=== PATIENT | female | born 1970 | race Caucasian/White ===

== ENCOUNTER 2018-06-19 00:44 | Emergency (ER) | payer MEDICAID ==
[2018-06-19 01:19] VITALS: BP 106/58
[2018-06-19] MEDS ORDERED: Ketorolac 30 MG/ML SDV IVPUSH ONE (01:43)
[2018-06-19] MEDS ORDERED: LORazepam 2 MG/ML SDV IVPUSH ONE (01:43)
[2018-06-19] MEDS ORDERED: Sodium Chloride 0.9% 10 ML Syringe FLUSH PRN (01:43)
--- NOTE | 2018-06-19 01:44 | EDM.PDOC ---
ED HPI GENERAL MEDICAL PROBLEM - General Chief Complaint: Respiratory Problem Stated Complaint: SOB Time Seen by Provider: 06/19/18 01:30 Source of Information: Reports: Patient History Limitations: Reports: No Limitations - History of Present Illness INITIAL COMMENTS - FREE TEXT/NARRATIVE: 48-year-old female arrives with left flank and left shoulder pain, pleuritic pain with breathing, anxiety and hyperventilation. She's been having spasm-like pain in the left shoulder all day. No cough. She is very hyperdramatic and anxious. Onset: Unknown/Unsure Associated Symptoms: Reports: Chest Pain, Shortness of Breath. Denies: Cough, Diaphoresis, Malaise, Nausea/Vomiting, Weakness Left Upper Back Pain Score (Numeric/FACES): 10 - Related Data Allergies Allergy/AdvReac Type Severity Reaction Status Date / Time adhesive tape Allergy Cannot Verified 06/19/18 01:20 Remember clindamycin Allergy Cannot Verified 06/19/18 01:20 Remember aspirin AdvReac Unknown Stomach Verified 06/19/18 01:20 Upset doxycycline AdvReac Unknown Stomach Verified 06/19/18 01:20 Upset guaifenesin AdvReac Unknown Stomach Verified 06/19/18 01:20 [From Robitussin A-C] Upset Home Meds: Home Meds Loratadine [Claritin] 10 mg PO DAILY 05/26/13 [History] Albuterol [Ventolin HFA] 1 - 2 puff INH Q4H PRN 06/16/13 [History] ClonazePAM [KlonoPIN] 0.5 mg PO TID PRN 06/16/13 [History] Symbicort 160-4.5 Inhaler 2 puff INH BID 06/16/13 [History] Albuterol [Proventil Neb Soln] 0.63 mg NEB Q2H PRN 07/16/13 [History] diphenhydrAMINE HCl [Benadryl] 75 mg PO BID PRN 10/19/13 [History] Omeprazole 40 mg PO DAILY 09/22/14 [History] tiZANidine [Zanaflex] 4 mg PO Q8H PRN 04/01/15 [History] Gemfibrozil 600 mg PO BID 06/09/15 [History] Levothyroxine Sodium [Tirosint] 50 mcg PO DAILY 09/19/15 [History] Fluticasone Propionate [Flonase] 2 spray INH DAILY 09/12/15 [History] hydrOXYzine Pamoate [Vistaril] 25 mg PO Q8H PRN 10/12/15 [History] Baclofen 10 mg PO DAILY 06/19/18 [History] Naproxen 500 mg PO BID 06/19/18 [History] Nortriptyline HCl [Pamelor] 25 mg PO DAILY 06/19/18 [History] Past Medical History HEENT History: Reports: Allergic Rhinitis, Impaired Vision Cardiovascular History: Reports: High Cholesterol Respiratory History: Reports: Asthma, Bronchitis, Recurrent Gastrointestinal History: Reports: GERD Genitourinary History: Reports: UTI, Recurrent [employer] History: Reports: Endometriosis, Musculoskeletal History: Reports: Back Pain, Chronic, Neck Pain, Chronic, Osteoarthritis, Other (See Below) Other Musculoskeletal History: torn rotator cuff left Neurological History: Reports: Headaches, Chronic, Neuropathy, Peripheral Psychiatric History: Reports: Anxiety, Panic Attack Endocrine/Metabolic History: Reports: Hypothyroidism, Obesity/BMI 30+ - Infectious Disease History Infectious Disease History: Reports: Chicken Pox - Past Surgical History GI Surgical History: Reports: EGD, Ann Fundoplication Female Surgical History: Reports: Tubal Ligation Endocrine Surgical History: Reports: None Dermatological Surgical History: Reports: None Social & Family History - Family History HEENT: Reports: Cataract, Glaucoma, Impaired Vision Cardiac: Reports: CAD, High Cholesterol, Hypertension Respiratory: Reports: Asthma, COPD, Pneumothorax, Sleep Apnea : Reports: Renal Calculus OBGYN: Reports: Endometriosis, Fibroids, Musculoskeletal: Reports: Arthritis, Back pain, Chronic, Neck Pain, Chronic Neurological: Reports: Alzheimers Disease, CVA, Dementia, Migraines, Neuropathy , Diabetic Psychiatric: Reports: Abuse, Victim of, Anxiety, Bipolar, Depression, Panic Attack, Psych Hospitalization(s) Endocrine/Metabolic: Reports: Diabetes, Gestational, Diabetes, Type I, Diabetes , type II, Obesity/MBI 30+ Dermatologic: Reports: Eczema, Psoriasis Oncologic: Reports: Brain, Breast, Lung - Tobacco Use Smoking Status *Q: Current Every Day Smoker Years of Tobacco use: 35 Packs/Tins Daily: 0.5 - Caffeine Use Caffeine Use: Reports: Coffee, Soda, Tea - Recreational Drug Use Recreational Drug Use: No - Living Situation & Occupation Living situation: Reports: ED ROS GENERAL - Review of Systems Review Of Systems: See Below Constitutional: Denies: Fever, Chills Respiratory: Reports: Shortness of Breath, Pleuritic Chest Pain. Denies: Wheezing, Cough Cardiovascular: Reports: Chest Pain GI/Abdominal: Denies: Abdominal Pain Musculoskeletal: Reports: Shoulder Pain Skin: Reports: No Symptoms Neurological: Denies: Headache Psychiatric: Reports: Anxiety ED EXAM, GENERAL - Physical Exam Exam: See Below Exam Limited By: No Limitations General Appearance: Alert, Anxious Head: Atraumatic Neck: Supple Respiratory/Chest: No Respiratory Distress, Lungs Clear, Other (Despite O2 saturations being normal and lungs being clear, she is hyperventilating) Cardiovascular: Regular Rate, Rhythm Neurological: Alert, Oriented Psychiatric: Anxious Course - Vital Signs Last Recorded V/S: Last Vital Signs Temp 96.7 F 06/19/18 01:12 Pulse 90 06/19/18 02:38 Resp 16 06/19/18 02:38 BP 106/58 L 06/19/18 02:38 Pulse Ox 98 06/19/18 02:38 - Orders/Labs/Meds Orders: Active Orders 24 hr Category Date Time Status Saline Lock Insert [OM.PC] Routine Oth 06/19/18 01:43 Ordered Labs: Laboratory Tests 06/19/18 Range/Units 01:47 Urine Opiates Screen Positive H (NEGATIVE) Ur Oxycodone Screen Negative (NEGATIVE) Urine Methadone Screen Negative (NEGATIVE) Ur Propoxyphene Screen Negative (NEGATIVE) Ur Barbiturates Screen Negative (NEGATIVE) Ur Tricyclics Screen Positive H (NEGATIVE) Ur Phencyclidine Scrn Negative (NEGATIVE) Ur Amphetamine Screen Positive H (NEGATIVE) U Methamphetamines Scrn Positive H (NEGATIVE) Urine MDMA Screen Positive H (NEGATIVE) U Benzodiazepines Scrn Negative (NEGATIVE) U Cocaine Metab Screen Negative (NEGATIVE) U Marijuana (THC) Screen Positive H (NEGATIVE) Meds: Medications Discontinued Medications Generic Name Dose Route Start Last Admin Trade Name Freq PRN Reason Stop Dose Admin Ketorolac Tromethamine 30 mg 06/19/18 01:43 06/19/18 01:59 Toradol IVPUSH 06/19/18 01:44 30 mg ONETIME ONE Administration Lorazepam 1 mg 06/19/18 01:43 06/19/18 02:02 Ativan IVPUSH 06/19/18 01:44 1 mg ONETIME ONE Administration Sodium Chloride 10 ml 06/19/18 01:43 06/19/18 02:01 Saline Flush FLUSH 10 ml ASDIRECTED PRN Administration Keep Vein Open - Re-Assessments/Exams Free Text/Narrative Re-Assessment/Exam: 06/19/18 01:49 An IV was started, 30 mg of IV Toradol along with 1 mg of IV Ativan were given. A urine drug screen was ordered but the patient said she wasn't able to give a urine initially. 06/19/18 02:13 A urine was eventually obtained and was positive for opiates, methamphetamine and marijuana. Patient was encouraged to avoid illicit drug use in the future. Departure - Departure Time of Disposition: 02:39 Disposition: Home, Self-Care 01 Condition: Fair Clinical Impression: Polysubstance abuse, Hyperventilation - Discharge Information Instructions: Hyperventilation Referrals: PCP,None [Primary Care Provider] - Forms: ED Department Discharge Care Plan Goals: Continue your current medications and avoid amphetamines and other illicit drug use in the future. Continue your therapy for your shoulder as prescribed. - My Orders Last 24 Hours: My Active Orders 06/19/18 01:43 Saline Lock Insert [OM.PC] Routine - Assessment/Plan Last 24 Hours: My Active Orders 06/19/18 01:43 Saline Lock Insert [OM.PC] Routine
== END 2018-06-19 02:40 | disposition home or self-care (01) ==
LOC: JP.ED 00:44
DX: R06.4 Hyperventilation (principal); F11.10 Opioid abuse, uncomplicated; F15.10 Other stimulant abuse, uncomplicated; F12.10 Cannabis abuse, uncomplicated; F17.210 Nicotine dependence, cigarettes, uncomplicated; E66.9 Obesity, unspecified; E03.9 Hypothyroidism, unspecified; Z79.899 Other long term (current) drug therapy; Z88.1 Allergy status to other antibiotic agents; Z88.6 Allergy status to analgesic agent; Z91.09 Other allergy status, other than to drugs and biological substances
CPT/HCPCS: 80305; 96374; 96375; 99284; 99285; J1885; J2060; J7050

== ENCOUNTER 2019-03-24 11:32 | Emergency (ER) | payer MEDICAID ==
--- NOTE | 2019-03-24 11:53 | EDM.PDOC ---
ED HPI GENERAL MEDICAL PROBLEM - General Chief Complaint: Chest Pain Stated Complaint: SOB Time Seen by Provider: 03/24/19 11:51 Source of Information: Reports: Patient History Limitations: Reports: No Limitations - History of Present Illness INITIAL COMMENTS - FREE TEXT/NARRATIVE: pt was at work and did get very sob. She was walking hre and she fell and lannded on her left ahoulder. She will respond but is lying with her eyes closed. Onset: Today, Sudden Duration: Hour(s): Location: Reports: Head, Chest Associated Symptoms: Reports: Shortness of Breath - Related Data Allergies Allergy/AdvReac Type Severity Reaction Status Date / Time adhesive tape Allergy Cannot Verified 03/24/19 11:44 Remember clindamycin Allergy Cannot Verified 03/24/19 11:44 Remember aspirin AdvReac Unknown Stomach Verified 03/24/19 11:44 Upset doxycycline AdvReac Unknown Stomach Verified 03/24/19 11:44 Upset guaifenesin AdvReac Unknown Stomach Verified 03/24/19 11:44 [From Robitussin A-C] Upset Home Meds: Home Meds Albuterol [Ventolin HFA] 1 - 2 puff INH Q4H PRN 06/16/13 [History] ClonazePAM [KlonoPIN] 1 mg PO BID PRN 06/16/13 [History] Symbicort 160-4.5 Inhaler 2 puff INH BID 06/16/13 [History] Albuterol [Proventil Neb Soln] 0.63 mg NEB Q2H PRN 07/16/13 [History] Omeprazole 40 mg PO DAILY 09/22/14 [History] Levothyroxine Sodium [Tirosint] 88 mcg PO DAILY 06/09/15 [History] Baclofen 10 mg PO DAILY 06/19/18 [History] Nortriptyline HCl [Pamelor] 25 mg PO DAILY 06/19/18 [History] Ibuprofen 800 mg PO TID 03/24/19 [History] Mupirocin [Centany] 1 applic TOP TID 03/24/19 [History] Triamcinolone Acetonide [Triamcinolone Acetonide 0.1% Crm] 1 applic TOP BID 01/07 [History] diphenhydrAMINE HCl [Banophen] 1 cap PO Q6H PRN 03/24/19 [History] Past Medical History HEENT History: Reports: Allergic Rhinitis, Impaired Vision Cardiovascular History: Reports: High Cholesterol Respiratory History: Reports: Asthma, Bronchitis, Recurrent Gastrointestinal History: Reports: GERD Genitourinary History: Reports: UTI, Recurrent RN PROCEDURES History: Reports: Endometriosis, Musculoskeletal History: Reports: Back Pain, Chronic, Neck Pain, Chronic, Osteoarthritis, Other (See Below) Other Musculoskeletal History: torn rotator cuff left,02/06 repaired Neurological History: Reports: Headaches, Chronic, Neuropathy, Peripheral Psychiatric History: Reports: Anxiety, Panic Attack Endocrine/Metabolic History: Reports: Hypothyroidism, Obesity/BMI 30+ - Infectious Disease History Infectious Disease History: Reports: Chicken Pox - Past Surgical History GI Surgical History: Reports: EGD, Ann Fundoplication Female Surgical History: Reports: Tubal Ligation Endocrine Surgical History: Reports: None Dermatological Surgical History: Reports: None Social & Family History - Family History HEENT: Reports: Cataract, Glaucoma, Impaired Vision Cardiac: Reports: CAD, High Cholesterol, Hypertension Respiratory: Reports: Asthma, COPD, Pneumothorax, Sleep Apnea : Reports: Renal Calculus OBGYN: Reports: Endometriosis, Fibroids, Musculoskeletal: Reports: Arthritis, Back pain, Chronic, Neck Pain, Chronic Neurological: Reports: Alzheimers Disease, CVA, Dementia, Migraines, Neuropathy , Diabetic Psychiatric: Reports: Abuse, Victim of, Anxiety, Bipolar, Depression, Panic Attack, Psych Hospitalization(s) Endocrine/Metabolic: Reports: Diabetes, Gestational, Diabetes, Type I, Diabetes , type II, Obesity/MBI 30+ Dermatologic: Reports: Eczema, Psoriasis Oncologic: Reports: Brain, Breast, Lung - Caffeine Use Caffeine Use: Reports: Coffee, Soda, Tea - Living Situation & Occupation Living situation: Reports: ED ROS GENERAL - Review of Systems Review Of Systems: See Below Constitutional: Reports: Malaise, Weakness, Diaphoresis HEENT: Reports: No Symptoms Respiratory: Reports: Shortness of Breath Cardiovascular: Reports: Chest Pain Endocrine: Reports: No Symptoms GI/Abdominal: Reports: No Symptoms : Reports: No Symptoms Musculoskeletal: Reports: No Symptoms Skin: Reports: No Symptoms ED EXAM, GENERAL - Physical Exam Exam: See Below Free Text/Narrative:: pt arrived not responding well and having some irregular breathing. She was very diaphoretic. She had gone to work doing some cleaning and she forgot part of the vacuum. She went back home to get the part and she started feeling sob and she developed some chest pain. She was brought in because she was so diaphoretic. Exam Limited By: No Limitations General Appearance: Alert, Anxious, Moderate Distress, Other (pupils equal and reactive. ) Ears: Normal TMs Nose: Normal Inspection Throat/Mouth: Normal Inspection Head: Atraumatic Neck: Normal Inspection Respiratory/Chest: Other (pt had good oxgenation but her breathing seemed iregular. ) Cardiovascular: Regular Rate, Rhythm GI/Abdominal: Soft, Non-Tender (Female) Exam: Deferred Rectal (Female) Exam: Deferred Back Exam: Normal Inspection Extremities: Normal Inspection Neurological: Alert, Oriented, Normal Cognition, Other (pt wouldlay with her eyes closed and would bearly respond at times. She is very diaphoretic. ) Psychiatric: Anxious Course - Vital Signs Last Recorded V/S: Last Vital Signs Temp 36.7 C 03/24/19 14:04 Pulse 74 03/24/19 14:04 Resp 17 03/24/19 14:04 BP 92/54 L 03/24/19 14:04 Pulse Ox 98 03/24/19 14:04 - Orders/Labs/Meds Labs: Laboratory Tests 03/24/19 03/24/19 03/24/19 Range/Units 11:50 11:50 11:50 WBC 6.9 (4.5-11.0) K/uL RBC 3.87 (3.30-5.50) M/uL Hgb 10.1 L D (12.0-15.0) g/dL Hct 32.0 L (36.0-48.0) % MCV 83 (80-98) fL MCH 26 L (27-31) pg MCHC 32 (32-36) % Plt Count 383 (150-400) K/uL Neut % (Auto) 47 (36-66) % Lymph % (Auto) 38 (24-44) % [place] % (Auto) 13 H (2-6) % Eos % (Auto) 2 (2-4) % Baso % (Auto) 1 (0-1) % Puncture Site ABG pH (7.350-7.450) ABG pCO2 (35.0-42.0) mmHg ABG pO2 (75.0-100.0) mmHg ABG HCO3 (22.0-26.0) mmol/L ABG Total CO2 (21.0-25.0) mmol/L ABG O2 Saturation (95.0-98.0) % ABG O2 Content (15.0-23.0) %vol ABG Base Excess mm/L ABG Hemoglobin (12.0-16.0) g/dL ABG Oxyhemoglobin % ABG Carboxyhemoglobin (0.0-1.6) % ABG Methemoglobin % Zach Test O2 Delivery Device Sodium 141 (140-148) mmol/L Potassium 3.3 L (3.6-5.2) mmol/L Chloride 108 (100-108) mmol/L Carbon Dioxide 16 L (21-32) mmol/L Anion Gap 20.3 H (5.0-14.0) mmol/L BUN 19 H D (7-18) mg/dL Creatinine 1.5 H (0.6-1.0) mg/dL Est Cr Clr Drug Dosing TNP Estimated GFR (MDRD) 37 L (>60) Glucose 159 H (74-106) mg/dL Calcium 8.9 (8.5-10.1) mg/dL Total Bilirubin 0.3 (0.2-1.0) mg/dL AST 22 (15-37) U/L ALT 24 (12-78) U/L Alkaline Phosphatase 97 (46-116) U/L Troponin I < 0.017 (0.000-0.056) ng/mL Total Protein 7.2 (6.4-8.2) g/dL Albumin 3.7 (3.4-5.0) g/dL Globulin 3.5 (2.3-3.5) g/dL Albumin/Globulin Ratio 1.1 L (1.2-2.2) TSH, Ultra Sensitive (0.358-3.740) uIU/mL Urine Color Urine Appearance Urine pH (4.5-8.0) Ur Specific [place] (1.008-1.030) Urine Protein (NEGATIVE) mg/dL Urine Glucose (UA) (NEGATIVE) mg/dL Urine Ketones (NEGATIVE) mg/dL Urine Occult Blood (NEGATIVE) Urine Nitrite (NEGATIVE) Urine Bilirubin (NEGATIVE) Urine Urobilinogen (NORMAL) mg/dL Ur Leukocyte Esterase (NEGATIVE) Urine RBC (0-5) Urine WBC (0-5) Ur Epithelial Cells Amorphous Sediment Urine Bacteria Urine Mucus Urine Other Urine Opiates Screen (NEGATIVE) Ur Oxycodone Screen (NEGATIVE) Urine Methadone Screen (NEGATIVE) Ur Propoxyphene Screen (NEGATIVE) Ur Barbiturates Screen (NEGATIVE) Ur Tricyclics Screen (NEGATIVE) Ur Phencyclidine Scrn (NEGATIVE) Ur Amphetamine Screen (NEGATIVE) U Methamphetamines Scrn (NEGATIVE) Urine MDMA Screen (NEGATIVE) U Benzodiazepines Scrn (NEGATIVE) U Cocaine Metab Screen (NEGATIVE) U Marijuana (THC) Screen (NEGATIVE) 03/24/19 03/24/19 03/24/19 Range/Units 11:50 11:55 14:27 WBC (4.5-11.0) K/uL RBC (3.30-5.50) M/uL Hgb (12.0-15.0) g/dL Hct (36.0-48.0) % MCV (80-98) fL MCH (27-31) pg MCHC (32-36) % Plt Count (150-400) K/uL Neut % (Auto) (36-66) % Lymph % (Auto) (24-44) % [place] % (Auto) (2-6) % Eos % (Auto) (2-4) % Baso % (Auto) (0-1) % Puncture Site Rt radial ABG pH 7.599 H* (7.350-7.450) ABG pCO2 14.1 L* (35.0-42.0) mmHg ABG pO2 134.0 H (75.0-100.0) mmHg ABG HCO3 13.9 L (22.0-26.0) mmol/L ABG Total CO2 12.4 L (21.0-25.0) mmol/L ABG O2 Saturation 99.3 H (95.0-98.0) % ABG O2 Content 14.1 L (15.0-23.0) %vol ABG Base Excess -6.0 mm/L ABG Hemoglobin 10.4 L (12.0-16.0) g/dL ABG Oxyhemoglobin 94.9 % ABG Carboxyhemoglobin 3.5 H (0.0-1.6) % ABG Methemoglobin 0.9 % Zach Test Passed O2 Delivery Device Room air Sodium (140-148) mmol/L Potassium (3.6-5.2) mmol/L Chloride (100-108) mmol/L Carbon Dioxide (21-32) mmol/L Anion Gap (5.0-14.0) mmol/L BUN (7-18) mg/dL Creatinine (0.6-1.0) mg/dL Est Cr Clr Drug Dosing Estimated GFR (MDRD) (>60) Glucose (74-106) mg/dL Calcium (8.5-10.1) mg/dL Total Bilirubin (0.2-1.0) mg/dL AST (15-37) U/L ALT (12-78) U/L Alkaline Phosphatase (46-116) U/L Troponin I (0.000-0.056) ng/mL Total Protein (6.4-8.2) g/dL Albumin (3.4-5.0) g/dL Globulin (2.3-3.5) g/dL Albumin/Globulin Ratio (1.2-2.2) TSH, Ultra Sensitive 6.057 H (0.358-3.740) uIU/mL Urine Color Yellow Urine Appearance Turbid Urine pH 5.0 (4.5-8.0) Ur Specific [place] 1.025 (1.008-1.030) Urine Protein Trace (NEGATIVE) mg/dL Urine Glucose (UA) Normal (NEGATIVE) mg/dL Urine Ketones 15 H (NEGATIVE) mg/dL Urine Occult Blood Moderate (NEGATIVE) Urine Nitrite Negative (NEGATIVE) Urine Bilirubin Negative (NEGATIVE) Urine Urobilinogen Normal (NORMAL) mg/dL Ur Leukocyte Esterase Small (NEGATIVE) Urine RBC 0-5 (0-5) Urine WBC 0-5 (0-5) Ur Epithelial Cells Moderate Amorphous Sediment Not seen Urine Bacteria Rare Urine Mucus Few Urine Other Urine Opiates Screen (NEGATIVE) Ur Oxycodone Screen (NEGATIVE) Urine Methadone Screen (NEGATIVE) Ur Propoxyphene Screen (NEGATIVE) Ur Barbiturates Screen (NEGATIVE) Ur Tricyclics Screen (NEGATIVE) Ur Phencyclidine Scrn (NEGATIVE) Ur Amphetamine Screen (NEGATIVE) U Methamphetamines Scrn (NEGATIVE) Urine MDMA Screen (NEGATIVE) U Benzodiazepines Scrn (NEGATIVE) U Cocaine Metab Screen (NEGATIVE) U Marijuana (THC) Screen (NEGATIVE) 03/24/19 Range/Units 14:45 WBC (4.5-11.0) K/uL RBC (3.30-5.50) M/uL Hgb (12.0-15.0) g/dL Hct (36.0-48.0) % MCV (80-98) fL MCH (27-31) pg MCHC (32-36) % Plt Count (150-400) K/uL Neut % (Auto) (36-66) % Lymph % (Auto) (24-44) % [place] % (Auto) (2-6) % Eos % (Auto) (2-4) % Baso % (Auto) (0-1) % Puncture Site ABG pH (7.350-7.450) ABG pCO2 (35.0-42.0) mmHg ABG pO2 (75.0-100.0) mmHg ABG HCO3 (22.0-26.0) mmol/L ABG Total CO2 (21.0-25.0) mmol/L ABG O2 Saturation (95.0-98.0) % ABG O2 Content (15.0-23.0) %vol ABG Base Excess mm/L ABG Hemoglobin (12.0-16.0) g/dL ABG Oxyhemoglobin % ABG Carboxyhemoglobin (0.0-1.6) % ABG Methemoglobin % Zach Test O2 Delivery Device Sodium (140-148) mmol/L Potassium (3.6-5.2) mmol/L Chloride (100-108) mmol/L Carbon Dioxide (21-32) mmol/L Anion Gap (5.0-14.0) mmol/L BUN (7-18) mg/dL Creatinine (0.6-1.0) mg/dL Est Cr Clr Drug Dosing Estimated GFR (MDRD) (>60) Glucose (74-106) mg/dL Calcium (8.5-10.1) mg/dL Total Bilirubin (0.2-1.0) mg/dL AST (15-37) U/L ALT (12-78) U/L Alkaline Phosphatase (46-116) U/L Troponin I (0.000-0.056) ng/mL Total Protein (6.4-8.2) g/dL Albumin (3.4-5.0) g/dL Globulin (2.3-3.5) g/dL Albumin/Globulin Ratio (1.2-2.2) TSH, Ultra Sensitive (0.358-3.740) uIU/mL Urine Color Urine Appearance Urine pH (4.5-8.0) Ur Specific [place] (1.008-1.030) Urine Protein (NEGATIVE) mg/dL Urine Glucose (UA) (NEGATIVE) mg/dL Urine Ketones (NEGATIVE) mg/dL Urine Occult Blood (NEGATIVE) Urine Nitrite (NEGATIVE) Urine Bilirubin (NEGATIVE) Urine Urobilinogen (NORMAL) mg/dL Ur Leukocyte Esterase (NEGATIVE) Urine RBC (0-5) Urine WBC (0-5) Ur Epithelial Cells Amorphous Sediment Urine Bacteria Urine Mucus Urine Other Urine Opiates Screen Negative (NEGATIVE) Ur Oxycodone Screen Negative (NEGATIVE) Urine Methadone Screen Negative (NEGATIVE) Ur Propoxyphene Screen Negative (NEGATIVE) Ur Barbiturates Screen Negative (NEGATIVE) Ur Tricyclics Screen Presumptive positive H (NEGATIVE) Ur Phencyclidine Scrn Negative (NEGATIVE) Ur Amphetamine Screen Presumptive positive H (NEGATIVE) U Methamphetamines Scrn Presumptive positive H (NEGATIVE) Urine MDMA Screen Negative (NEGATIVE) U Benzodiazepines Scrn Negative (NEGATIVE) U Cocaine Metab Screen Negative (NEGATIVE) U Marijuana (THC) Screen Presumptive positive H (NEGATIVE) Meds: Medications Discontinued Medications Generic Name Dose Route Start Last Admin Trade Name Freq PRN Reason Stop Dose Admin Sodium Chloride 1,000 mls @ 999 mls/hr 03/24/19 12:00 03/24/19 12:28 Normal Saline IV 999 mls/hr ASDIRECTED EMMY Administration Sodium Chloride 1,000 mls @ 999 mls/hr 03/24/19 13:45 03/24/19 14:02 Normal Saline IV 999 mls/hr ASDIRECTED EMMY Administration Potassium Chloride 20 meq 03/24/19 13:45 03/24/19 14:02 Klor-Con M20 PO 03/24/19 13:46 20 meq ONETIME ONE Administration - Re-Assessments/Exams Free Text/Narrative Re-Assessment/Exam: 03/24/19 14:37 pt had blood gases which showed marked hyperventilation Her co2 was 12 and ph was 7.55. She gradually improved after being here . She was very diaphoretic. Her k was low and she appeared to be dehydrated. 03/24/19 14:39 her tsh is on the high side. 03/24/19 14:51 pt had a positive drug screen for meth. and marjauna 03/26/19 07:15 Departure - Departure Time of Disposition: 14:39 Disposition: Home, Self-Care 01 Condition: Fair Clinical Impression: Hyperventilation, Dehydration, Hypokalemia, Anxiety Instructions: Hyperventilation Referrals: PCP,None [Primary Care Provider] - Forms: ED Department Discharge Care Plan Goals: push fluids, cont same meds, high k foods, decrease levothyroxen to 88 mcg one day and 75 on the next. She has a upcoming appt with Anh Ball. -- She can be readjusted at that time.
[2019-03-24] MEDS ORDERED: Sodium Chloride 0.9% 1,000 ML IV SCH ×2 (12:00→13:45)
[2019-03-24] MEDS ORDERED: Potassium Chloride 20 MEQ Tab.ER PO ONE (13:45)
--- NOTE | 2019-03-24 13:47 | CRLCR ---
HISTORY: Fall, injury. TECHNIQUE: Three views of the left shoulder. COMPARISON: No prior. FINDINGS: No acute fracture. The humeral head may be mildly posteriorly superiorly subluxed but does not appear frankly dislocated. The AC joint appears mildly widened. No abnormality within the included left lung. IMPRESSION: 1. No acute fracture. 2. The humeral head may be mildly posteriorly superiorly subluxed but does not appear frankly dislocated. 3. Mildly widened AC joint. Dictated by Rc Rivera MD @ 03/24/2019 1:45:58 PM Dictated by: Rc Rivera MD @ 03/24/2019 13:46:03 (Electronically Signed)
[2019-03-24 14:05] VITALS: BP 92/54; PULSE 74
== END 2019-03-24 15:14 | disposition home or self-care (01) ==
LOC: JP.ED 11:32
DX: R06.4 Hyperventilation (principal); E86.0 Dehydration; E87.6 Hypokalemia; F41.9 Anxiety disorder, unspecified; E78.00 Pure hypercholesterolemia, unspecified; J45.909 Unspecified asthma, uncomplicated; K21.9 Gastro-esophageal reflux disease without esophagitis; E03.9 Hypothyroidism, unspecified; E66.9 Obesity, unspecified; Z88.1 Allergy status to other antibiotic agents; Z91.048 Other nonmedicinal substance allergy status; Z88.8 Allergy status to other drugs, medicaments and biological substances; Z79.899 Other long term (current) drug therapy
CPT/HCPCS: 36415; 36600; 73030; 80053; 80305; 81001; 82803; 84443; 84484; 85025; 93005; 96360; 96361; 99285; A9270; J7030; 93010; 99283

== ENCOUNTER 2019-06-27 18:36 | Emergency (ER) | payer MEDICAID ==
[2019-06-27] MEDS ORDERED: fentaNYL 100 MCG/2 ML SDV IVPUSH ONE (19:00)
[2019-06-27] MEDS ORDERED: Metoclopramide 10 MG/2 ML SDV IV ONE (19:00)
[2019-06-27] MEDS ORDERED: Sodium Chloride 0.9% 10 ML Syringe FLUSH PRN (19:00)
[2019-06-27] MEDS ORDERED: Sodium Chloride 0.9% 1,000 ML IV SCH (19:00)
[2019-06-27] MEDS ORDERED: LORazepam 2 MG/ML SDV IVPUSH ONE (19:02)
--- NOTE | 2019-06-27 19:07 | EDM.PDOC ---
ED HPI GENERAL MEDICAL PROBLEM - General Chief Complaint: Genitourinary Problem Stated Complaint: LOWER ABD PAIN Time Seen by Provider: 06/27/19 18:50 Source of Information: Reports: Patient, Family (male significant other) History Limitations: Reports: Uncooperative (due to severity of pain in left abdomen/pelvis) - History of Present Illness INITIAL COMMENTS - FREE TEXT/NARRATIVE: 49 year old female present to ER with acute onset of lower abdominal pain. Patient took Ibuprofen 600mg 3 hours ago without improvement of pain. Patient' s pain started 2 hours ago. Patient has a history of tubal ligation and known endometriosis. Patient is not aware of history due to ovarian cysts or rupture. Patient's last menstrual period ended one week ago. Patient feels nauseated due to pain and unable to give any other history due to severity of pain. Patient was in a normal state of health yesterday. Earlier today she felt slightly lightheaded and flush without pain until abrupt onset of pain this evening. Patient has history of similar pain with endometriosis but not as severe. Patient's symptoms are much improved after medications given. Patient denies fever, nausea, vomiting, diarrhea, constipation or urinary symptoms. Left Lower Abdominal Pain Score (Numeric/FACES): 10 - Related Data Allergies Allergy/AdvReac Type Severity Reaction Status Date / Time adhesive tape Allergy Cannot Verified 06/27/19 18:59 Remember clindamycin Allergy Cannot Verified 06/27/19 18:59 Remember aspirin AdvReac Unknown Stomach Verified 06/27/19 18:59 Upset doxycycline AdvReac Unknown Stomach Verified 06/27/19 18:59 Upset guaifenesin AdvReac Unknown Stomach Verified 06/27/19 18:59 [From Robitussin A-C] Upset Home Meds: Home Meds Albuterol [Ventolin HFA] 1 - 2 puff INH Q4H PRN 06/16/13 [History] ClonazePAM [KlonoPIN] 1 mg PO BID PRN 06/16/13 [History] Symbicort 160-4.5 Inhaler 2 puff INH BID 06/16/13 [History] Albuterol [Proventil Neb Soln] 0.63 mg NEB Q2H PRN 07/16/13 [History] Omeprazole 40 mg PO DAILY 09/22/14 [History] Levothyroxine Sodium [Tirosint] 88 mcg PO DAILY 06/09/15 [History] Baclofen 10 mg PO DAILY 06/19/18 [History] Nortriptyline HCl [Pamelor] 25 mg PO DAILY 06/19/18 [History] Ibuprofen 800 mg PO TID 03/24/19 [History] Mupirocin [Centany] 1 applic TOP TID 03/24/19 [History] Triamcinolone Acetonide [Triamcinolone Acetonide 0.1% Crm] 1 applic TOP BID 01/07 [History] diphenhydrAMINE HCl [Banophen] 1 cap PO Q6H PRN 03/24/19 [History] Acetaminophen/HYDROcodone [Grant 325-5 MG] 1 - 2 tab PO Q6H PRN 2 Days #4 tab [Rx] Naproxen [Naprosyn] 500 mg PO Q8HR PRN 10 Days #30 tablet 06/27/19 [Rx] Past Medical History HEENT History: Reports: Allergic Rhinitis, Impaired Vision Cardiovascular History: Reports: High Cholesterol Respiratory History: Reports: Asthma, Bronchitis, Recurrent Gastrointestinal History: Reports: GERD Genitourinary History: Reports: UTI, Recurrent 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, Musculoskeletal History: Reports: Back Pain, Chronic, Neck Pain, Chronic, Osteoarthritis, Other (See Below) Other Musculoskeletal History: torn rotator cuff left,02/06 repaired Neurological History: Reports: Headaches, Chronic, Neuropathy, Peripheral Psychiatric History: Reports: Anxiety, Panic Attack Endocrine/Metabolic History: Reports: Hypothyroidism, Obesity/BMI 30+ - Infectious Disease History Infectious Disease History: Reports: Chicken Pox - Past Surgical History GI Surgical History: Reports: EGD, Ann Fundoplication Female Surgical History: Reports: Tubal Ligation Endocrine Surgical History: Reports: None Dermatological Surgical History: Reports: None Social & Family History - Family History HEENT: Reports: Cataract, Glaucoma, Impaired Vision Cardiac: Reports: CAD, High Cholesterol, Hypertension Respiratory: Reports: Asthma, COPD, Pneumothorax, Sleep Apnea : Reports: Renal Calculus OBGYN: Reports: Endometriosis, Fibroids, Musculoskeletal: Reports: Arthritis, Back pain, Chronic, Neck Pain, Chronic Neurological: Reports: Alzheimers Disease, CVA, Dementia, Migraines, Neuropathy , Diabetic Psychiatric: Reports: Abuse, Victim of, Anxiety, Bipolar, Depression, Panic Attack, Psych Hospitalization(s) Endocrine/Metabolic: Reports: Diabetes, Gestational, Diabetes, Type I, Diabetes , type II, Obesity/MBI 30+ Dermatologic: Reports: Eczema, Psoriasis Oncologic: Reports: Brain, Breast, Lung - Caffeine Use Caffeine Use: Reports: Coffee, Soda, Tea - Living Situation & Occupation Living situation: Reports: ED ROS GENERAL - Review of Systems Review Of Systems: ROS reveals no pertinent complaints other than HPI. ( initially unable to obtain due to severity of pelvic pain) ED EXAM, GI/ABD - Physical Exam Exam: See Below Exam Limited By: Uncooperative (due to level of pain. Pain medications order and examination will be complete once more comfortable) General Appearance: Alert, WD/WN, Severe Distress, Other (pain improved after medications (most comfortable in positioning). ) Eyes: Bilateral: Normal Appearance, EOMI Ears: Normal External Exam, Normal Canal, Hearing Grossly Normal, Normal TMs Nose: Normal Inspection, Normal Mucosa Throat/Mouth: Normal Inspection, Normal Voice, No Airway Compromise Head: Normocephalic Neck: Normal Inspection, Supple, Non-Tender, Full Range of Motion Respiratory/Chest: No Respiratory Distress, Lungs Clear, Normal Breath Sounds, No Accessory Muscle Use, Chest Non-Tender Cardiovascular: Normal Peripheral Pulses, Regular Rate, Rhythm, No Rub GI/Abdominal Exam: Soft, Tender (across lower abdomen left side worse than right ) (Female) Exam: Deferred Rectal (Female) Exam: Deferred Extremities: Normal Inspection, Normal Range of Motion, Non-Tender, Normal Capillary Refill, No Pedal Edema Neurological: Alert, Oriented, CN II-XII Intact, Normal Cognition Psychiatric: Normal Affect, Normal Mood Skin Exam: Warm, Dry, Intact, Normal Color, No Rash Course - Vital Signs Last Recorded V/S: Last Vital Signs Temp 36.4 C 06/27/19 19:03 Pulse 69 06/27/19 19:28 Resp 16 06/27/19 19:28 BP 87/44 L 06/27/19 19:28 Pulse Ox 96 06/27/19 19:28 - Orders/Labs/Meds Orders: Active Orders 24 hr Category Date Time Status Peripheral IV Care [RC] . DIRECTED Care 06/27/19 19:01 Active Pelvis Non OB Comp [US] Stat Exams 06/27/19 19:55 Taken Sodium Chloride 0.9% [Normal Saline] 1,000 ml Med 06/27/19 19:00 Active IV ASDIRECTED Sodium Chloride 0.9% [Saline Flush] Med 06/27/19 19:00 Active 10 ml FLUSH ASDIRECTED PRN Peripheral IV Insertion Adult [OM.PC] Urgent Oth 06/27/19 19:00 Ordered Medication Orders Sodium Chloride (Normal Saline) 1,000 mls @ 500 mls/hr IV ASDIRECTED EMMY Last Admin: 06/27/19 19:24 Dose: 500 mls/hr Sodium Chloride (Saline Flush) 10 ml FLUSH ASDIRECTED PRN PRN Reason: Keep Vein Open Last Admin: 06/27/19 19:24 Dose: 10 ml Labs: Laboratory Tests 06/27/19 06/27/19 06/27/19 Range/Units 19:10 19:10 19:10 WBC 7.4 (4.5-11.0) K/uL RBC 4.22 (3.30-5.50) M/uL Hgb 10.9 L (12.0-15.0) g/dL Hct 35.9 L (36.0-48.0) % MCV 85 (80-98) fL MCH 26 L (27-31) pg MCHC 30 L (32-36) % Plt Count 423 H (150-400) K/uL Neut % (Auto) 44 (36-66) % Lymph % (Auto) 43 (24-44) % [place] % (Auto) 9 H (2-6) % Eos % (Auto) 2 (2-4) % Baso % (Auto) 1 (0-1) % Sodium 142 (140-148) mmol/L Potassium 3.9 (3.6-5.2) mmol/L Chloride 108 (100-108) mmol/L Carbon Dioxide 22 (21-32) mmol/L Anion Gap 12.0 (5.0-14.0) mmol/L BUN 14 (7-18) mg/dL Creatinine 0.9 (0.6-1.0) mg/dL Est Cr Clr Drug Dosing 63.92 mL/min Estimated GFR (MDRD) > 60 (>60) Glucose 81 (74-106) mg/dL Calcium 8.4 L (8.5-10.1) mg/dL HCG, Qual Negative Urine Color (YELLOW) Urine Appearance (CLEAR) Urine pH (5.0-8.0) Ur Specific [place] (1.008-1.030) Urine Protein (NEGATIVE) mg/dL Urine Glucose (UA) (NEGATIVE) mg/dL Urine Ketones (NEGATIVE) mg/dL Urine Occult Blood (NEGATIVE) Urine Nitrite (NEGATIVE) Urine Bilirubin (NEGATIVE) Urine Urobilinogen (0.2-1.0) EU/dL Ur Leukocyte Esterase (NEGATIVE) Urine RBC (0-5) Urine WBC (0-5) Ur Epithelial Cells Amorphous Sediment Urine Bacteria Urine Mucus 06/27/19 Range/Units 21:23 WBC (4.5-11.0) K/uL RBC (3.30-5.50) M/uL Hgb (12.0-15.0) g/dL Hct (36.0-48.0) % MCV (80-98) fL MCH (27-31) pg MCHC (32-36) % Plt Count (150-400) K/uL Neut % (Auto) (36-66) % Lymph % (Auto) (24-44) % [place] % (Auto) (2-6) % Eos % (Auto) (2-4) % Baso % (Auto) (0-1) % Sodium (140-148) mmol/L Potassium (3.6-5.2) mmol/L Chloride (100-108) mmol/L Carbon Dioxide (21-32) mmol/L Anion Gap (5.0-14.0) mmol/L BUN (7-18) mg/dL Creatinine (0.6-1.0) mg/dL Est Cr Clr Drug Dosing mL/min Estimated GFR (MDRD) (>60) Glucose (74-106) mg/dL Calcium (8.5-10.1) mg/dL HCG, Qual Urine Color Yellow (YELLOW) Urine Appearance Clear (CLEAR) Urine pH 5.5 (5.0-8.0) Ur Specific [place] 1.025 (1.008-1.030) Urine Protein Negative (NEGATIVE) mg/dL Urine Glucose (UA) Negative (NEGATIVE) mg/dL Urine Ketones Negative (NEGATIVE) mg/dL Urine Occult Blood Negative (NEGATIVE) Urine Nitrite Negative (NEGATIVE) Urine Bilirubin Negative (NEGATIVE) Urine Urobilinogen 0.2 (0.2-1.0) EU/dL Ur Leukocyte Esterase Negative (NEGATIVE) Urine RBC Not seen (0-5) Urine WBC 0-5 (0-5) Ur Epithelial Cells Moderate Amorphous Sediment Not seen Urine Bacteria Moderate Urine Mucus Not seen Meds: Medications Generic Name Dose Route Start Last Admin Trade Name Feli PRN Reason Stop Dose Admin Sodium Chloride 1,000 mls @ 500 mls/hr 06/27/19 19:00 06/27/19 19:24 Normal Saline IV 500 mls/hr ASDIRECTED EMMY Administration Sodium Chloride 10 ml 06/27/19 19:00 06/27/19 19:24 Saline Flush FLUSH 10 ml ASDIRECTED PRN Administration Keep Vein Open Discontinued Medications Generic Name Dose Route Start Last Admin Trade Name Freq PRN Reason Stop Dose Admin Fentanyl 50 mcg 06/27/19 19:00 06/27/19 19:24 Sublimaze IVPUSH 06/27/19 19:01 50 mcg ONETIME ONE Administration Lorazepam 2 mg 06/27/19 19:02 06/27/19 19:23 Ativan IVPUSH 06/27/19 19:03 2 mg ONETIME ONE Administration Metoclopramide HCl 5 mg 06/27/19 19:00 06/27/19 19:24 Reglan IV 06/27/19 19:01 5 mg ONETIME ONE Administration - Re-Assessments/Exams Free Text/Narrative Re-Assessment/Exam: Patient's pain is much improved after medications given. Wet read on US no acute findings noted. Good flow to both ovaries. Discuss pain management with patient and follow-up instructions. 06/27/19 22:54 Patient confirms symptoms are essential resolved. Patient needs a note for work and would like something a little stronger for pain if needed. Patient was previously on Naproxen which works better for her pelvic pain. 06/27/19 22:02 Departure - Departure Time of Disposition: 22:15 Disposition: Home, Self-Care 01 Clinical Impression: Pelvic pain, Endometriosis - Discharge Information Prescriptions: Naproxen [Naprosyn] 500 mg PO Q8HR PRN 10 Days #30 tablet PRN Reason: Pain Acetaminophen/HYDROcodone [Grant 325-5 MG] 1 - 2 tab PO Q6H PRN 2 Days #4 tab PRN Reason: Pain (Severe 7-10) Instructions: Abdominal Pain, Adult, Pelvic Pain, Female, Pain Without a Known Cause Referrals: Quinn,Serene, PA [Primary Care Provider] - Forms: ED Department Discharge Additional Instructions: 1. Continue current medications for pain. 2. Caution with Grant and medications for muscle spasms and anxiety. 3. Naproxen 500mg every 8-12 hrrs with food for inflammation, swelling and pelvic pain. 4. Tylenol 500-1000mg every 6 hrs for mild pain if needed. 5. Call PCP in am for follow-up regarding ER visit and pelvic pain. 6. Return to ER if worsening symptoms or concerns - Problem List & Annotations (1) Pelvic pain SNOMED Code(s): 41059396 Code(s): R10.2 - PELVIC AND PERINEAL PAIN Status: Acute Current Visit: Yes (2) Anxiety SNOMED Code(s): 93567897 Code(s): F41.9 - ANXIETY DISORDER, UNSPECIFIED Status: Acute Current Visit: No - My Orders Last 24 Hours: My Active Orders 06/27/19 19:00 Sodium Chloride 0.9% [Normal Saline] 1,000 ml IV ASDIRECTED Sodium Chloride 0.9% [Saline Flush] 10 ml FLUSH ASDIRECTED PRN Peripheral IV Insertion Adult [OM.PC] Urgent 06/27/19 19:01 Peripheral IV Care [RC] . DIRECTED 06/27/19 19:55 Pelvis Non OB Comp [US] Stat - Assessment/Plan Last 24 Hours: My Active Orders 06/27/19 19:00 Sodium Chloride 0.9% [Normal Saline] 1,000 ml IV ASDIRECTED Sodium Chloride 0.9% [Saline Flush] 10 ml FLUSH ASDIRECTED PRN Peripheral IV Insertion Adult [OM.PC] Urgent 06/27/19 19:01 Peripheral IV Care [RC] . DIRECTED 06/27/19 19:55 Pelvis Non OB Comp [US] Stat
[2019-06-27 19:30] VITALS: BP 87/44; PULSE 69
--- NOTE | 2019-06-27 22:23 | CRLUS ---
INDICATION: Pelvic pain COMPARISON: None TECHNIQUE: Multiple grayscale sonographic images of the pelvis acquired transabdominally. The patient declined transvaginal scanning. FINDINGS: The uterus measures 10.8 x 5.2 x 7.4 cm and demonstrates normal echotexture. The endometrium measures up to 14 mm in thickness, within normal limits for premenopausal status. The right ovary measures 3.4 x 2.3 x 2.4 cm. The left ovary measures 3.8 x 2.8 x 2.5 cm. There is unremarkable sonographic appearance of the ovaries. Vascular flow is demonstrated to both ovaries with spectral Doppler. No significant free fluid is demonstrated in the pelvis. Limited views of the urinary bladder grossly unremarkable. IMPRESSION: Unremarkable transabdominal sonographic appearance of the uterus and ovaries. . Dictated by Alena Reynaga MD @ Jun 27 2019 10:21PM Signed by Dr. Alena Reynaga @ Jun 27 2019 10:21PM
== END 2019-06-27 22:20 | disposition home or self-care (01) ==
LOC: JP.ED 18:36
DX: N80.9 Endometriosis, unspecified (principal); F41.9 Anxiety disorder, unspecified; J45.909 Unspecified asthma, uncomplicated; K21.9 Gastro-esophageal reflux disease without esophagitis; E66.9 Obesity, unspecified; Z88.6 Allergy status to analgesic agent; Z91.048 Other nonmedicinal substance allergy status; Z88.1 Allergy status to other antibiotic agents; Z88.8 Allergy status to other drugs, medicaments and biological substances; Z79.51 Long term (current) use of inhaled steroids; Z68.24 Body mass index [BMI] 24.0-24.9, adult
CPT/HCPCS: 36415; 76856; 80048; 81001; 84703; 85025; 96361; 96374; 96375; 99284; J2060; J2765; J3010; J7030; 99283

== ENCOUNTER 2020-06-18 01:58 | Inpatient (IN) | payer MEDICAID, OTHER ==
--- NOTE | 2020-06-18 02:32 | EDM.PDOC ---
ED HPI GENERAL MEDICAL PROBLEM - General Chief Complaint: General Stated Complaint: KIDNEY/BACK PAIN Time Seen by Provider: 06/18/20 02:36 Source of Information: Reports: Patient, Family History Limitations: Reports: No Limitations - History of Present Illness INITIAL COMMENTS - FREE TEXT/NARRATIVE: pt arrived with back pain which started on thu. She is having some urinary flaco quency. She is feeling very belching and feels like she wants to vomit but she has had a ann. She has not had a fever. She has been coughing. She had a Covid on Thursday but has not had the results. She has gotten very weak for the past 24 hours. Duration: Hour(s): Location: Reports: Back Associated Symptoms: Reports: Cough, Headaches, Malaise, Nausea/Vomiting, Weakness Bilateral Lower Back Pain Score (Numeric/FACES): 7 - Related Data Allergies Allergy/AdvReac Type Severity Reaction Status Date / Time adhesive tape Allergy Cannot Verified 06/18/20 02:12 Remember clindamycin Allergy Cannot Verified 06/18/20 02:12 Remember aspirin AdvReac Unknown Stomach Verified 06/18/20 02:12 Upset doxycycline AdvReac Unknown Stomach Verified 06/18/20 02:12 Upset guaifenesin AdvReac Unknown Stomach Verified 06/18/20 02:12 [From Molly A-C] Upset Home Meds: Home Meds Albuterol [Ventolin HFA] 1 - 2 puff INH Q4H PRN 06/16/13 [History] Budesonide/Formoterol [Symbicort 160-4.5 MCG] 2 puff INH BID #0 06/16/13 [History] ClonazePAM [KlonoPIN] 1 mg PO BID PRN 06/16/13 [History] Albuterol [Proventil Neb Soln] 0.63 mg NEB Q2H PRN 07/16/13 [History] Omeprazole 40 mg PO DAILY 09/22/14 [History] Levothyroxine Sodium [Tirosint] 88 mcg PO DAILY 06/09/15 [History] Baclofen 10 mg PO DAILY 06/19/18 [History] Mupirocin [Centany] 1 applic TOP TID 03/24/19 [History] Triamcinolone Acetonide [Triamcinolone Acetonide 0.1% Crm] 1 applic TOP BID 03/24/19 [History] diphenhydrAMINE HCL [Banophen] 1 cap PO Q6H PRN 03/24/19 [History] Naproxen [Naprosyn] 500 mg PO Q8HR PRN 10 Days #30 tablet 06/27/19 [Rx] Venlafaxine HCl [Venlafaxine ER] 75 mg PO DAILY 06/18/20 [History] estradioL [Estradiol] 0.5 mg PO DAILY 06/18/20 [History] Past Medical History HEENT History: Reports: Allergic Rhinitis, Impaired Vision Cardiovascular History: Reports: High Cholesterol Respiratory History: Reports: Asthma, Bronchitis, Recurrent Gastrointestinal History: Reports: GERD Genitourinary History: Reports: UTI, Recurrent CRECHE ATTENDANT History: Reports: Endometriosis, Musculoskeletal History: Reports: Back Pain, Chronic, Neck Pain, Chronic, Osteoarthritis, Other (See Below) Other Musculoskeletal History: torn rotator cuff left,02/06 repaired Neurological History: Reports: Headaches, Chronic, Neuropathy, Peripheral Psychiatric History: Reports: Anxiety, Panic Attack Endocrine/Metabolic History: Reports: Hypothyroidism, Obesity/BMI 30+ - Infectious Disease History Infectious Disease History: Reports: Chicken Pox - Past Surgical History GI Surgical History: Reports: EGD, Ann Fundoplication Female Surgical History: Reports: Hysterectomy, Tubal Ligation Endocrine Surgical History: Reports: None Dermatological Surgical History: Reports: None Social & Family History - Family History HEENT: Reports: Cataract, Glaucoma, Impaired Vision Cardiac: Reports: CAD, High Cholesterol, Hypertension Respiratory: Reports: Asthma, COPD, Pneumothorax, Sleep Apnea : Reports: Renal Calculus OBGYN: Reports: Endometriosis, Fibroids, Musculoskeletal: Reports: Arthritis, Back pain, Chronic, Neck Pain, Chronic Neurological: Reports: Alzheimers Disease, CVA, Dementia, Migraines, Neuropathy, Diabetic Psychiatric: Reports: Abuse, Victim of, Anxiety, Bipolar, Depression, Panic Attack, Psych Hospitalization(s) Endocrine/Metabolic: Reports: Diabetes, Gestational, Diabetes, Type I, Diabetes, type II, Obesity/MBI 30+ Dermatologic: Reports: Eczema, Psoriasis Oncologic: Reports: Brain, Breast, Lung - Tobacco Use Smoking Status *Q: Current Every Day Smoker Years of Tobacco use: 36 Packs/Tins Daily: 0.5 - Caffeine Use Caffeine Use: Reports: Soda, Tea - Recreational Drug Use Recreational Drug Use: No - Living Situation & Occupation Living situation: Reports: ED ROS GENERAL - Review of Systems Review Of Systems: See Below Constitutional: Reports: Malaise, Weakness, Decreased Appetite HEENT: Reports: No Symptoms Respiratory: Reports: Shortness of Breath, Cough Cardiovascular: Reports: No Symptoms Endocrine: Reports: No Symptoms GI/Abdominal: Reports: Abdominal Pain, Nausea, Other (pt is having painin the rt cva area. ) : Reports: Flank Pain, Frequency Musculoskeletal: Reports: Other (pain in the rt cva area. ) Skin: Reports: No Symptoms Neurological: Reports: No Symptoms Psychiatric: Reports: Anxiety ED EXAM, GENERAL - Physical Exam Exam: See Below Free Text/Narrative:: pt is a pale appearing uncomfortabe pt. She is doing alot of belching. She is nauseated. Exam Limited By: No Limitations General Appearance: Alert, Anxious, Mild Distress Ears: Normal TMs Nose: Normal Inspection Throat/Mouth: Normal Inspection Head: Atraumatic Neck: Normal Inspection Respiratory/Chest: No Respiratory Distress Cardiovascular: Regular Rate, Rhythm GI/Abdominal: Tender, Other ( rt cva area. ) (Female) Exam: Deferred Rectal (Female) Exam: Deferred Back Exam: Normal Inspection Extremities: Normal Inspection Neurological: Alert, Oriented, Normal Cognition Psychiatric: Anxious Course - Vital Signs Last Recorded V/S: Last Vital Signs Temp 36.4 C 06/18/20 02:24 Pulse 61 06/18/20 02:24 Resp 18 06/18/20 02:24 BP 131/78 06/18/20 02:24 Pulse Ox 98 06/18/20 02:24 - Orders/Labs/Meds Orders: Active Orders 24 hr Category Date Time Status Chest 1V Frontal [CR] Stat Exams 06/18/20 02:56 Taken CORONAVIRUS COVID-19, KENDRICK Stat Lab 06/18/20 04:14 Ordered Sodium Chloride 0.9% [Normal Saline] 1,000 ml Med 06/18/20 02:45 Active IV ASDIRECTED Sodium Chloride 0.9% [Normal Saline] 1,000 ml Med 06/18/20 03:45 Active IV ASDIRECTED Sodium Chloride 0.9% [Normal Saline] 80 ml Med 06/18/20 03:30 Active IV ASDIRECTED Medication Orders Sodium Chloride (Normal Saline) 1,000 mls @ 999 mls/hr IV ASDIRECTED EMMY Last Admin: 06/18/20 02:48 Dose: 999 mls/hr Documented by: SHARON Sodium Chloride (Normal Saline) 80 mls @ 3 mls/sec IV ASDIRECTED EMMY Last Admin: 06/18/20 03:42 Dose: 3 mls/sec Documented by: KAREN Sodium Chloride (Normal Saline) 1,000 mls @ 999 mls/hr IV ASDIRECTED EMMY Labs: Laboratory Tests 06/18/20 06/18/20 06/18/20 Range/Units 02:34 02:34 02:34 WBC 11.2 H (4.5-11.0) K/uL RBC 4.52 (3.30-5.50) M/uL Hgb 11.2 L (12.0-15.0) g/dL Hct 37.7 (36.0-48.0) % MCV 83 (80-98) fL MCH 25 L (27-31) pg MCHC 30 L (32-36) % Plt Count 335 (150-400) K/uL Neut % (Auto) 58 (36-66) % Lymph % (Auto) 30 (24-44) % [place] % (Auto) 10 H (2-6) % Eos % (Auto) 2 (2-4) % Baso % (Auto) 1 (0-1) % Sodium 143 (140-148) mmol/L Potassium 3.6 (3.6-5.2) mmol/L Chloride 107 (100-108) mmol/L Carbon Dioxide 24 (21-32) mmol/L Anion Gap 11.9 (5.0-14.0) mmol/L BUN 12 (7-18) mg/dL Creatinine 0.9 (0.6-1.0) mg/dL Est Cr Clr Drug Dosing 63.24 mL/min Estimated GFR (MDRD) > 60 (>60) Glucose 105 (74-106) mg/dL Calcium 8.4 L (8.5-10.1) mg/dL Total Bilirubin 0.1 L D (0.2-1.0) mg/dL AST 20 (15-37) U/L ALT 24 (12-78) U/L Alkaline Phosphatase 118 H (46-116) U/L C-Reactive Protein 0.01 (0.0-0.3) mg/dL Total Protein 7.0 (6.4-8.2) g/dL Albumin 3.3 L (3.4-5.0) g/dL Globulin 3.7 H (2.3-3.5) g/dL Albumin/Globulin Ratio 0.9 L (1.2-2.2) Amylase (25-115) U/L Lipase (73-393) U/L Urine Color (YELLOW) Urine Appearance (CLEAR) Urine pH (5.0-8.0) Ur Specific [place] (1.008-1.030) Urine Protein (NEGATIVE) mg/dL Urine Glucose (UA) (NEGATIVE) mg/dL Urine Ketones (NEGATIVE) mg/dL Urine Occult Blood (NEGATIVE) Urine Nitrite (NEGATIVE) Urine Bilirubin (NEGATIVE) Urine Urobilinogen (0.2-1.0) EU/dL Ur Leukocyte Esterase (NEGATIVE) Urine RBC (0-5) Urine WBC (0-5) Ur Epithelial Cells Amorphous Sediment Urine Bacteria Urine Mucus 06/18/20 06/18/20 Range/Units 02:55 02:58 WBC (4.5-11.0) K/uL RBC (3.30-5.50) M/uL Hgb (12.0-15.0) g/dL Hct (36.0-48.0) % MCV (80-98) fL MCH (27-31) pg MCHC (32-36) % Plt Count (150-400) K/uL Neut % (Auto) (36-66) % Lymph % (Auto) (24-44) % [place] % (Auto) (2-6) % Eos % (Auto) (2-4) % Baso % (Auto) (0-1) % Sodium (140-148) mmol/L Potassium (3.6-5.2) mmol/L Chloride (100-108) mmol/L Carbon Dioxide (21-32) mmol/L Anion Gap (5.0-14.0) mmol/L BUN (7-18) mg/dL Creatinine (0.6-1.0) mg/dL Est Cr Clr Drug Dosing mL/min Estimated GFR (MDRD) (>60) Glucose (74-106) mg/dL Calcium (8.5-10.1) mg/dL Total Bilirubin (0.2-1.0) mg/dL AST (15-37) U/L ALT (12-78) U/L Alkaline Phosphatase (46-116) U/L C-Reactive Protein (0.0-0.3) mg/dL Total Protein (6.4-8.2) g/dL Albumin (3.4-5.0) g/dL Globulin (2.3-3.5) g/dL Albumin/Globulin Ratio (1.2-2.2) Amylase 129 H D (25-115) U/L Lipase 596 H (73-393) U/L Urine Color Yellow (YELLOW) Urine Appearance Clear (CLEAR) Urine pH 6.0 (5.0-8.0) Ur Specific [place] >= 1.030 (1.008-1.030) Urine Protein Negative (NEGATIVE) mg/dL Urine Glucose (UA) Negative (NEGATIVE) mg/dL Urine Ketones Negative (NEGATIVE) mg/dL Urine Occult Blood Negative (NEGATIVE) Urine Nitrite Negative (NEGATIVE) Urine Bilirubin Negative (NEGATIVE) Urine Urobilinogen 0.2 (0.2-1.0) EU/dL Ur Leukocyte Esterase Negative (NEGATIVE) Urine RBC 0-5 (0-5) Urine WBC 0-5 (0-5) Ur Epithelial Cells Few Amorphous Sediment Not seen Urine Bacteria Few Urine Mucus Not seen Meds: Medications Generic Name Dose Route Start Last Admin Trade Name Freq PRN Reason Stop Dose Admin Sodium Chloride 1,000 mls @ 999 mls/hr 06/18/20 02:45 06/18/20 02:48 Normal Saline IV 999 mls/hr ASDIRECTED EMMY Administration Sodium Chloride 80 mls @ 3 mls/sec 06/18/20 03:30 06/18/20 03:42 Normal Saline IV 3 mls/sec ASDIRECTED EMMY Administration Sodium Chloride 1,000 mls @ 999 mls/hr 06/18/20 03:45 Normal Saline IV ASDIRECTED EMMY Discontinued Medications Generic Name Dose Route Start Last Admin Trade Name Freq PRN Reason Stop Dose Admin Famotidine 20 mg 06/18/20 02:34 06/18/20 02:55 Pepcid IVPUSH 06/18/20 02:35 20 mg ONETIME ONE Administration Hydromorphone HCl 0.5 mg 06/18/20 03:36 Dilaudid IVPUSH 06/18/20 03:37 ONETIME ONE Iopamidol 110 ml 06/18/20 03:23 06/18/20 03:42 Isovue-300 (61%) IV 06/18/20 03:24 110 ml ONETIME ONE Administration Lorazepam 0.5 mg 06/18/20 02:51 06/18/20 03:02 Ativan IVPUSH 06/18/20 02:52 0.5 mg ONETIME ONE Administration Ondansetron HCl 4 mg 06/18/20 02:33 06/18/20 02:53 Zofran IVPUSH 06/18/20 02:34 4 mg ONETIME ONE Administration Sodium Chloride 10 ml 06/18/20 03:23 06/18/20 03:42 Saline Flush FLUSH 06/18/20 03:24 10 ml ONETIME ONE Administration - Re-Assessments/Exams Free Text/Narrative Re-Assessment/Exam: 06/18/20 04:15 pt was found to have mild elevation in her pancreatic enzymes. She had a cat scan of the abdoman which showed a distended stomach, she had a adrenal nodule. Her GB did appear normal. She does need a Us of her abdoman. Departure - Departure Time of Disposition: 04:16 Disposition: Admitted As Inpatient 68 Condition: Fair Clinical Impression: Acute distention of stomach, Elevated pancreatic enzyme, Dehydration - Discharge Information Referrals: PCP,None [Primary Care Provider] - Forms: ED Department Discharge Care Plan Goals: adfmit to Dr Amaya. Sepsis Event Note (ED) - Focused Exam Vital Signs: Vital Signs Temp Pulse Resp BP Pulse Ox 06/18/20 02:24 36.4 C 61 18 131/78 98 - My Orders Last 24 Hours: My Active Orders 06/18/20 02:45 Sodium Chloride 0.9% [Normal Saline] 1,000 ml IV ASDIRECTED 06/18/20 02:56 Chest 1V Frontal [CR] Stat 06/18/20 03:30 Sodium Chloride 0.9% [Normal Saline] 80 ml IV ASDIRECTED 06/18/20 03:45 Sodium Chloride 0.9% [Normal Saline] 1,000 ml IV ASDIRECTED 06/18/20 04:14 CORONAVIRUS COVID-19, KENDRICK Stat - Assessment/Plan Last 24 Hours: My Active Orders 06/18/20 02:45 Sodium Chloride 0.9% [Normal Saline] 1,000 ml IV ASDIRECTED 06/18/20 02:56 Chest 1V Frontal [CR] Stat 06/18/20 03:30 Sodium Chloride 0.9% [Normal Saline] 80 ml IV ASDIRECTED 06/18/20 03:45 Sodium Chloride 0.9% [Normal Saline] 1,000 ml IV ASDIRECTED 06/18/20 04:14 CORONAVIRUS COVID-19, KENDRICK Stat
[2020-06-18] MEDS ORDERED: Ondansetron 4 MG/2 ML SDV IVPUSH ONE (02:33)
[2020-06-18] MEDS ORDERED: Famotidine 20 MG/2 ML SDV IVPUSH ONE (02:34)
[2020-06-18] MEDS ORDERED: Sodium Chloride 0.9% 1,000 ML IV SCH ×3 (02:45→05:45)
[2020-06-18] MEDS ORDERED: LORazepam 2 MG/ML SDV IVPUSH ONE (02:51)
[2020-06-18] MEDS ORDERED: Iopamidol 612 MG/ML 500 ML Multipack Bottle IV ONE (03:23)
[2020-06-18] MEDS ORDERED: Sodium Chloride 0.9% 10 ML Syringe FLUSH ONE (03:23)
[2020-06-18] MEDS ORDERED: Sodium Chloride 0.9% 80 ML IV SCH (03:30)
[2020-06-18] MEDS ORDERED: HYDROmorphone 0.5 MG/0.5 ML Syringe IVPUSH ONE (03:36)
--- NOTE | 2020-06-18 03:59 | CRLCT ---
INDICATION: Pain in right flank area, elevated pancreatic enzymes TECHNIQUE: CT Abdomen and pelvis with i.v. contrast. Coronal and sagittal reformats were obtained. CONTRAST: 110 mL Isovue 300 COMPARISON: None FINDINGS: Lower chest: Unremarkable. Liver: Unremarkable. Spleen: Unremarkable. Pancreas: Unremarkable. Gallbladder: Unremarkable. Kidney: Unremarkable. No kidney or ureteral stones or obstruction seen. Adrenal: There is a low-density right adrenal nodule present measuring 1.9 cm. Bowel: Mild distention of the stomach is present and may be due to recent meal. Previous surgery near the GE junction is noted and may be due to fundoplication. The appendix is normal in appearance and size. Vascular: Unremarkable. Lymph: Unremarkable. Peritoneum: Unremarkable. No pneumoperitoneum is seen. No significant ascites is noted. Pelvis: The patient is status post prior hysterectomy. Soft tissue: Unremarkable. Bone: Unremarkable for age. IMPRESSION: 1. There is a low-density right adrenal nodule present measuring 1.9 cm. Correlation with patient`s history and laboratory data is recommended to determine the hormone activity level of this lesion. Dictated by Artemio Rojas MD @ 06/18/2020 3:57:43 AM Please note that all CT scans at this facility use dose modulation, iterative reconstruction, and/or weight-based dosing when appropriate to reduce radiation dose to as low as reasonably achievable. Dictated by: Artemio Rojas MD @ 06/18/2020 03:57:45 (Electronically Signed)
[2020-06-18] MEDS ORDERED: Ondansetron 4 MG/2 ML SDV IV PRN (05:42)
[2020-06-18] MEDS ORDERED: Albuterol 8 GM Inhaler INH PRN (05:58)
[2020-06-18] MEDS ORDERED: Albuterol 0.021% 0.63 MG/3 ML Neb Soln NEB PRN (05:58)
[2020-06-18] MEDS ORDERED: Pantoprazole 40 MG Vial IVPUSH SCH (06:00)
[2020-06-18] MEDS: HYDROmorphone 0.5 MG/0.5 ML Syringe IVPUSH PRN ×3 (06:20→15:19)
--- NOTE | 2020-06-18 07:02 | HP ---
CHIEF COMPLAINT: Flank pain with nausea and diarrhea. HISTORY OF PRESENT ILLNESS: A 50-year-old, few years ago, states that she had pancreatitis. She has been having nausea but has not been able to throw up because of previous Ann fundoplication, diarrhea. She has had a cough and a headache. I did a telephone visit virtually and did order a COVID test on the , which was negative. The patient's pain came on then in her back after I had talked to her on the phone on Thursday, which has continued. Significant other has had to help her get in and out of bed. She has had nausea but has not been able to throw up. Continues to have diarrhea. Came into the emergency room for further evaluation, was noted to have elevated lipase and amylase. CT scan showed mild distention of stomach, which may be due to recent meal although it sounds like she really has not eaten much. She had previous surgery in the GE junction, would be consistent with her fundoplication. It showed a 1.9 cm nodule in the right adrenal gland, etiology uncertain. I was asked to admit the patient for further evaluation. Dr. Saldana, emergency physician, felt that she was dehydrated, has been getting IV fluids, Zofran for nausea, and Dilaudid for pain. PAST MEDICAL HISTORY: 1. Ann fundoplication. 2. Asthma. 3. Polysubstance abuse. 4. Anxiety. 5. Hypothyroidism. 6. Nicotine dependence. 7. Chronic low back pain. 8. Right carpal tunnel syndrome. 9. Seasonal allergies. 10.Abnormal uterine bleeding. She is status post hysterectomy, I believe, for endometriosis. 11.History of migraine headaches. MEDICATIONS: 1. Albuterol neb p.r.n. 2. Albuterol inhaler p.r.n. 3. Baclofen 10 mg daily. 4. Symbicort 160/4.5 two puffs b.i.d. 5. Clonazepam 1 mg b.i.d. p.r.n. 6. Diphenhydramine 25 mg q.6 hours p.r.n. 7. Estradiol 0.5 mg daily. 8. Levothyroxine 88 mcg daily. 9. Mupirocin topically t.i.d. 10.Naproxen 500 mg q.8 hours. 11.Omeprazole 40 mg daily. 12.Topical triamcinolone p.r.n. 13.Venlafaxine 75 mg daily, extended release. ALLERGIES: ADHESIVE TAPE, CLINDAMYCIN, ASPIRIN, DOXYCYCLINE, GUAIFENESIN. SOCIAL HISTORY: She has been a smoker. She denies any alcohol. FAMILY HISTORY: Mother had some type of pancreatic problem. There is also report of heart disease, hypertension, asthma, COPD, disease, stroke, diabetes. REVIEW OF SYSTEMS: She does report a headache. No vision changes. She has had a nonproductive cough, nausea, but has not been able to throw up, diarrhea. She denies any skin problems. No swelling in her legs. No neurologic complaints reported other than the headache. OBJECTIVE: VITAL SIGNS: Weight 72 kg. Pulse 70, blood pressure 120/60, respirations 18, and O2 saturation 97% on room air. GENERAL: The patient looking like she is in discomfort, but alert and oriented. HEENT: Pharynx show dry mucous membranes. NECK: Supple. No significant adenopathy or thyromegaly. LUNGS: Clear. HEART: Regular without murmurs. ABDOMEN: Soft. She has some mild epigastric discomfort. No distention. No mass or organomegaly palpated. She does have flank and mid back pain that is reproducible with palpation. EXTREMITIES: No edema. SKIN: Negative. NEUROLOGIC: Cranial nerves 2 through 12 grossly intact. Alert and oriented. LABORATORY DATA: Her white count was 11.2, hemoglobin 11.2, platelets 335,000 with 58% neutrophils, 30% lymphocytes, 10% monocytes. Sodium 143, potassium 3.6, chloride 107, BUN is 12, creatinine 0.9. AST was normal at 20, ALT 24, alkaline phosphatase elevated at 118. Amylase was elevated at 129, lipase was elevated at 596. Urinalysis was unremarkable. COVID test was negative here in the ER. CT scan showed mild distention of the stomach, may represent a recent meal, previous surgery at GE junction noted, has had fundoplication. She did have a 1.9 cm right adrenal gland nodule, etiology uncertain. Chest x-ray was unremarkable. ASSESSMENT: 1. Abdominal and back pain with elevated pancreatic enzymes with a history of pancreatitis in the past. Looking like she has mild pancreatitis based on enzymes results. We will admit her inpatient, n.p.o., transfer care to the hospitalist service. Continue with IV fluids, Dilaudid for pain, and Zofran for nausea. 2. A 1.9 cm right adrenal nodule. 3. Cough, etiology uncertain. 4. History of asthma. Continue with her breathing treatments. 5. Polysubstance abuse. 6. Anxiety. 7. Hypothyroidism. 8. Other medical problems as listed above. Curry Amaya MD /[id number]
[2020-06-18] MEDS ORDERED: Formoterol/Mometasone 200-5 MCG 8.8 GM Inhaler IH SCH ×2 (07:30→09:00)
--- NOTE | 2020-06-18 10:33 | CR ---
CHEST: Portable 06/18/2020 at 3:15 AM CLINICAL HISTORY:Cough COMPARISON:2013 FINDINGS: The heart size, pulmonary vascularity and hilar structures are normal. No infiltrate effusion or pneumothorax is seen. IMPRESSION: No acute cardiopulmonary process.
[2020-06-18] MEDS ORDERED: Midazolam 1 MG/ML 2 ML SDV ONE (11:29)
[2020-06-18] MEDS ORDERED: Propofol 200 MG/20 ML SDV ONE (11:29)
[2020-06-18] MEDS ORDERED: fentaNYL 100 MCG/2 ML SDV ONE (11:29)
--- NOTE | 2020-06-18 12:27 | PCM.PN ---
- General Info Date of Service: 06/18/20 Subjective Update: Ms. Agustin is a 50-year-old woman who was admitted early this morning by Dr. Amaya with weakness, headache, myalgias, nausea, and abdominal pain. CRP was found to be within normal range, white blood cell count only modestly elevated. Chest x-ray is clear with no obvious infiltrates or other abnormalities. CT scan of the abdomen showed only dilatation of the stomach and an incidental adrenal lesion. No other significant abnormalities were identified. Amylase and lipase levels were modestly elevated. She has received some IV fluids through the night as well as pain medication and nausea medication. She reports that she is really feeling about the same as she was on admission. Vital signs have otherwise been stable and she has remained afebrile. Functional Status: Reports: Urinating - Review of Systems General: Reports: Weakness, Malaise. Denies: Fever, Chills HEENT: Reports: Headaches Pulmonary: Reports: Cough, Sputum. Denies: Shortness of Breath, Pleuritic Chest Pain, Hemoptysis, Wheezing Cardiovascular: Reports: No Symptoms Gastrointestinal: Reports: Abdominal Pain, Nausea. Denies: Constipation, Diarrhea, Difficulty Swallowing, Hematochezia, Melena, Vomiting Genitourinary: Reports: No Symptoms - Patient Data Vitals - Most Recent: Last Vital Signs Temp 96.8 F L 06/18/20 12:05 Pulse 57 L 06/18/20 12:10 Resp 56 H 06/18/20 12:10 BP 96/48 L 06/18/20 12:10 Pulse Ox 97 06/18/20 12:10 Weight - Most Recent: 174 lb I&O - Last 24 Hours: Intake & Output 06/17/20 06/18/20 06/18/20 22:59 06:59 14:59 Output Total 200 650 Balance -200 -650 Lab Results Last 24 Hours: Laboratory Results - last 24 hr 06/18/20 06/18/20 06/18/20 Range/Units 02:34 02:34 02:34 WBC 11.2 H (4.5-11.0) K/uL RBC 4.52 (3.30-5.50) M/uL Hgb 11.2 L (12.0-15.0) g/dL Hct 37.7 (36.0-48.0) % MCV 83 (80-98) fL MCH 25 L (27-31) pg MCHC 30 L (32-36) % Plt Count 335 (150-400) K/uL Neut % (Auto) 58 (36-66) % Lymph % (Auto) 30 (24-44) % [place] % (Auto) 10 H (2-6) % Eos % (Auto) 2 (2-4) % Baso % (Auto) 1 (0-1) % Sodium 143 (140-148) mmol/L Potassium 3.6 (3.6-5.2) mmol/L Chloride 107 (100-108) mmol/L Carbon Dioxide 24 (21-32) mmol/L Anion Gap 11.9 (5.0-14.0) mmol/L BUN 12 (7-18) mg/dL Creatinine 0.9 (0.6-1.0) mg/dL Est Cr Clr Drug Dosing 63.24 mL/min Estimated GFR (MDRD) > 60 (>60) Glucose 105 (74-106) mg/dL Calcium 8.4 L (8.5-10.1) mg/dL Total Bilirubin 0.1 L D (0.2-1.0) mg/dL AST 20 (15-37) U/L ALT 24 (12-78) U/L Alkaline Phosphatase 118 H (46-116) U/L C-Reactive Protein 0.01 (0.0-0.3) mg/dL Total Protein 7.0 (6.4-8.2) g/dL Albumin 3.3 L (3.4-5.0) g/dL Globulin 3.7 H (2.3-3.5) g/dL Albumin/Globulin Ratio 0.9 L (1.2-2.2) Amylase (25-115) U/L Lipase (73-393) U/L Urine Color (YELLOW) Urine Appearance (CLEAR) Urine pH (5.0-8.0) Ur Specific [place] (1.008-1.030) Urine Protein (NEGATIVE) mg/dL Urine Glucose (UA) (NEGATIVE) mg/dL Urine Ketones (NEGATIVE) mg/dL Urine Occult Blood (NEGATIVE) Urine Nitrite (NEGATIVE) Urine Bilirubin (NEGATIVE) Urine Urobilinogen (0.2-1.0) EU/dL Ur Leukocyte Esterase (NEGATIVE) Urine RBC (0-5) Urine WBC (0-5) Ur Epithelial Cells Amorphous Sediment Urine Bacteria Urine Mucus SARS-CoV-2 RNA (KENDRICK) (NEGATIVE) 06/18/20 06/18/20 06/18/20 Range/Units 02:55 02:58 04:15 WBC (4.5-11.0) K/uL RBC (3.30-5.50) M/uL Hgb (12.0-15.0) g/dL Hct (36.0-48.0) % MCV (80-98) fL MCH (27-31) pg MCHC (32-36) % Plt Count (150-400) K/uL Neut % (Auto) (36-66) % Lymph % (Auto) (24-44) % [place] % (Auto) (2-6) % Eos % (Auto) (2-4) % Baso % (Auto) (0-1) % Sodium (140-148) mmol/L Potassium (3.6-5.2) mmol/L Chloride (100-108) mmol/L Carbon Dioxide (21-32) mmol/L Anion Gap (5.0-14.0) mmol/L BUN (7-18) mg/dL Creatinine (0.6-1.0) mg/dL Est Cr Clr Drug Dosing mL/min Estimated GFR (MDRD) (>60) Glucose (74-106) mg/dL Calcium (8.5-10.1) mg/dL Total Bilirubin (0.2-1.0) mg/dL AST (15-37) U/L ALT (12-78) U/L Alkaline Phosphatase (46-116) U/L C-Reactive Protein (0.0-0.3) mg/dL Total Protein (6.4-8.2) g/dL Albumin (3.4-5.0) g/dL Globulin (2.3-3.5) g/dL Albumin/Globulin Ratio (1.2-2.2) Amylase 129 H D (25-115) U/L Lipase 596 H (73-393) U/L Urine Color Yellow (YELLOW) Urine Appearance Clear (CLEAR) Urine pH 6.0 (5.0-8.0) Ur Specific [place] >= 1.030 (1.008-1.030) Urine Protein Negative (NEGATIVE) mg/dL Urine Glucose (UA) Negative (NEGATIVE) mg/dL Urine Ketones Negative (NEGATIVE) mg/dL Urine Occult Blood Negative (NEGATIVE) Urine Nitrite Negative (NEGATIVE) Urine Bilirubin Negative (NEGATIVE) Urine Urobilinogen 0.2 (0.2-1.0) EU/dL Ur Leukocyte Esterase Negative (NEGATIVE) Urine RBC 0-5 (0-5) Urine WBC 0-5 (0-5) Ur Epithelial Cells Few Amorphous Sediment Not seen Urine Bacteria Few Urine Mucus Not seen SARS-CoV-2 RNA (KENDRICK) Negative (NEGATIVE) Med Orders - Current: Current Medications Albuterol (Proventil Neb Soln) 0.63 mg NEB Q2H PRN PRN Reason: Wheezing Albuterol (Ventolin Hfa) 0 gm INH Q4H PRN PRN Reason: Shortness of Breath Hydromorphone HCl (Dilaudid) 0.5 mg IVPUSH Q2H PRN PRN Reason: Abdominal Pain Last Admin: 06/18/20 08:22 Dose: 0.5 mg Documented by: Sodium Chloride (Normal Saline) 1,000 mls @ 250 mls/hr IV ASDIRECTED [facility] Last Admin: 06/18/20 06:27 Dose: 250 mls/hr Documented by: Mometasone Furoate/Formoterol Fumar (Dulera 200-5 Mcg) 2 puff IH BIDRT [facility] Last Admin: 06/18/20 08:20 Dose: 2 puff Documented by: Ondansetron HCl (Zofran) 4 mg IV Q4H PRN PRN Reason: Nausea/Vomiting Pantoprazole Sodium (Protonix Iv) 40 mg IVPUSH Q24H [facility] Last Admin: 06/18/20 06:27 Dose: 40 mg Documented by: Discontinued Medications Famotidine (Pepcid) 20 mg IVPUSH ONETIME ONE Stop: 06/18/20 02:35 Last Admin: 06/18/20 02:55 Dose: 20 mg Documented by: Fentanyl (Sublimaze) Confirm Administered Dose 100 mcg .ROUTE .STK-MED ONE Stop: 06/18/20 11:30 Hydromorphone HCl (Dilaudid) 0.5 mg IVPUSH ONETIME ONE Stop: 06/18/20 03:37 Last Admin: 06/18/20 04:15 Dose: 0.5 mg Documented by: Sodium Chloride (Normal Saline) 1,000 mls @ 999 mls/hr IV ASDIRECTED [facility] Last Admin: 06/18/20 02:48 Dose: 999 mls/hr Documented by: Sodium Chloride (Normal Saline) 80 mls @ 3 mls/sec IV ASDIRECTED [facility] Last Admin: 06/18/20 03:42 Dose: 3 mls/sec Documented by: Sodium Chloride (Normal Saline) 1,000 mls @ 999 mls/hr IV ASDIRECTED [facility] Last Admin: 06/18/20 04:54 Dose: 999 mls/hr Documented by: Iopamidol (Isovue-300 (61%)) 110 ml IV ONETIME ONE Stop: 06/18/20 03:24 Last Admin: 06/18/20 03:42 Dose: 110 ml Documented by: Lorazepam (Ativan) 0.5 mg IVPUSH ONETIME ONE Stop: 06/18/20 02:52 Last Admin: 06/18/20 03:02 Dose: 0.5 mg Documented by: Midazolam HCl (Versed 1 Mg/Ml) Confirm Administered Dose 2 mg .ROUTE .STK-MED ONE Stop: 06/18/20 11:30 Ondansetron HCl (Zofran) 4 mg IVPUSH ONETIME ONE Stop: 06/18/20 02:34 Last Admin: 06/18/20 02:53 Dose: 4 mg Documented by: Propofol (Diprivan 20 Ml) Confirm Administered Dose 200 mg .ROUTE .STK-MED ONE Stop: 06/18/20 11:30 Sodium Chloride (Saline Flush) 10 ml FLUSH ONETIME ONE Stop: 06/18/20 03:24 Last Admin: 06/18/20 03:42 Dose: 10 ml Documented by: - Exam General: Alert, Oriented, Cooperative, Moderate Distress Lungs: Clear to Auscultation, Normal Respiratory Effort Cardiovascular: Regular Rate, Regular Rhythm, No Murmurs GI/Abdominal Exam: Soft, No Organomegaly, Tender. No: Distended, Guarding, Rigid, Rebound Back Exam: Normal Inspection, Full Range of Motion Extremities: Non-Tender, No Pedal Edema Sepsis Event Note - Evaluation Sepsis Screening Result: No Definite Risk - Focused Exam Vital Signs: Vital Signs Temp Pulse Resp BP Pulse Ox 06/18/20 12:10 57 L 56 H 96/48 L 97 06/18/20 12:05 96.8 F L 52 L 57 H 102/59 L 96 06/18/20 08:30 97.3 F 64 20 124/77 95 06/18/20 06:15 96.7 F L 16 128/85 96 06/18/20 05:33 75 16 96/51 L 97 06/18/20 05:03 66 17 103/53 L 96 06/18/20 04:33 70 106/41 L 06/18/20 03:30 70 18 120/60 97 06/18/20 02:24 97.6 F 61 18 131/78 98 - Problem List Review Problem List Initiated/Reviewed/Updated: Yes - My Orders Last 24 Hours: My Active Orders 06/18/20 11:05 Consult to Physician [CONS] Routine Abdomen Comp [US] Stat Head wo Cont [CT] Routine 06/18/20 11:08 Notify Provider Consults [RC] ASDIRECTED 06/18/20 Lunch Clear Liquid Diet [DIET] 06/19/20 05:00 AMYLASE [CHEM] Timed CBC WITH AUTO DIFF [HEME] Timed COMPREHENSIVE METABOLIC PN,CMP [CHEM] Timed LIPASE [CHEM] Timed - Plan Plan:: ASSESSMENT AND PLAN PROBABLE VIRAL SYNDROME-specific etiology not clear. Multitude of symptoms including headache, sore throat, cough, abdominal pain, and nausea. COVID 19 testing is negative, minimal elevation in CRP. CT scan of the abdomen pelvis was unremarkable. Lipase and amylase levels as well as white blood cell count are modestly elevated. -Consult Dr. Mar for EGD -CT scan of the head without contrast to evaluate headache -Abdominal ultrasound to evaluate for gallbladder disease -IV fluids for hydration -Pain and nausea medications as needed -Reassess labs in a.m. MAINTENANCE ISSUES -DVT prophylaxis; SCUDs -GI prophylaxis; not indicated -Bolton catheter; not indicated -Nutrition; clear liquid diet -Nicotine dependence; not required CODE STATUS-FULL CODE ADMISSION STATUS-patient will be admitted to inpatient status, expect at least a 2 night hospital stay for evaluation and management of problems as outlined above. At the time of this admission I do not reasonably expected evaluation and management of this problem will require more than a 96 hour hospital stay. DISPOSITION-anticipate discharge to home after the hospital stay. PRIMARY CARE PROVIDER-Dr. Amaya
[2020-06-18 13:09] VITALS: BP 145/88; PULSE 56
--- NOTE | 2020-06-18 13:35 | CT ---
Head wo Cont CLINICAL HISTORY: New headache COMPARISON: April 09, 2020 TECHNIQUE: Transverse scans were obtained from the base of the skull through the vertex without IV contrast on a multislice, multidetector CT scanner. Auto dosage reduction and iterative reconstruction techniques employed. FINDINGS: No focal abnormal parenchymal density is identified. There is no mass effect, hemorrhage, or extraaxial collection. The basal cisterns and sulci over the convexities are normal. The ventricles are normal for age. There is some ethmoid mucosal thickening IMPRESSION: No acute intracranial process identified Mild mucosal thickening in the ethmoid sinuses
[2020-06-18] MEDS ORDERED: Acetaminophen 325 MG Tab PO PRN (13:49)
--- NOTE | 2020-06-18 14:03 | US ---
Abdomen Comp CLINICAL HISTORY: Epigastric and right upper quadrant pain COMPARISON: CT abdomen same day. TECHNIQUE: Real-time images were obtained through the right upper quadrant. FINDINGS: The liver is free of mass or biliary dilatation. Echotexture is homogeneous. The gallbladder has a normal appearance. The common bile duct measures 5 mm. The pancreas is obscured. The right kidney has normal appearance. The IVC is normal. Aorta is partially obscured. No aneurysm is seen IMPRESSION: Essentially negative right upper quadrant ultrasound Pancreas and proximal aorta are obscured
--- NOTE | 2020-06-18 15:09 | OR ---
DATE OF PROCEDURE: 06/18/2020 SURGEON: Erickson Mar MD PROCEDURE: 1. Esophagogastroduodenoscopy. 2. Dilation, balloon used was 54-[place]. FINDINGS: 1. Mild narrowing of gastroesophageal junction after Ann fundoplication. 2. Small hiatal hernia. COMPLICATIONS: None. URBAN ANTHROPOLOGIST: None. PREOPERATIVE DIAGNOSIS: Dysphagia. POSTOPERATIVE DIAGNOSES: Dysphagia. PROCEDURE IN DETAIL: The patient was placed in left lateral decubitus position. EGD scope was introduced and advanced atraumatically to the second part of the duodenum. No evidence of duodenitis or ulceration. Within the stomach itself, no evidence of gastritis or ulceration. The junction was slightly narrowed. A 54-[place] balloon was used to dilate to the stage II. No abnormalities were noted at the GE junction. No abnormalities in the esophagus. No old or new blood throughout the entire procedure. The patient tolerated the procedure well. Erickson Mar MD /[id number]
--- NOTE | 2020-06-18 15:43 | PCM.DCSUM1 ---
Discharge Summary - Hospital Course Brief History: Ms. Agustin is a 50-year-old woman who was admitted through the emergency department with weakness and dehydration, secondary to abdominal pain and nausea. Lipase level was mildly elevated and she was felt to have possible pancreatitis. - Discharge Data Discharge Date: 06/18/20 Discharge Disposition: Home, Self-Care 01 Condition: Fair - Referral to Home Health Primary Care Physician: PCP None - Discharge Diagnosis/Problem(s) (1) Abdominal pain SNOMED Code(s): 11629124 ICD Code: R10.9 - UNSPECIFIED ABDOMINAL PAIN Status: Acute Current Visit: Yes (2) Nausea SNOMED Code(s): 883983000 ICD Code: R11.0 - NAUSEA Status: Acute Current Visit: Yes (3) Elevated pancreatic enzyme SNOMED Code(s): 386726924 ICD Code: R74.8 - ABNORMAL LEVELS OF OTHER SERUM ENZYMES Status: Acute Current Visit: Yes (4) Dehydration SNOMED Code(s): 95412555 ICD Code: E86.0 - DEHYDRATION Status: Acute Current Visit: Yes (5) Nicotine dependence SNOMED Code(s): 91987087 ICD Code: F17.200 - NICOTINE DEPENDENCE, UNSPECIFIED, UNCOMPLICATED Status: Chronic Current Visit: No - Patient Summary/Data Consults: Consultations 06/18/20 11:05 Consult to Physician [CONS] Routine Consulting Provider: Erickson Mar Call Completed to Consulting Physician: Yes Reason for Consult: Nausea, abd pain, enlarged stomach on CT, s/p Ann Hospital Course: Ms. Agustin is a 50-year-old woman who was admitted through the emergency department with weakness and dehydration secondary to abdominal pain and nausea. Symptoms have been present over the past few days and worsened over a period of 24 hours prior to admission. Pain was present in the epigastric region and right upper quadrant as well as lower abdomen. White blood cell count was modestly elevated as was lipase and amylase levels. She did report a previous history of pancreatitis a few years ago. Denies recent alcohol use. CT scan of the abdomen and pelvis was obtained in the emergency department and did show some enlargement of the stomach as well as previous Ann fundoplication. On a dmission she was given IV fluids for hydration as well as medication for pain and nausea. Surgical consult was obtained with Dr. Mar and EGD was performed which was unremarkable, other than the noted previous Ann procedure. She also reported symptoms of headache, CT scan of the head without contrast was unremarkable. Abdominal ultrasound was obtained and showed no evidence of gallbladder wall thickening or ductal enlargement. Plan was to continue monitoring the patient and consider further evaluation depending on symptoms. On the afternoon of discharge she requested that she be discharged home but did not want to stay in the hospital any further. I did reiterate that I felt it was best for her to stay in the hospital until we could identify the underlying etiology of her symptoms. She still decided to leave the hospital and was discharged on her request. I have asked her to see her primary care provider in the next several days, sooner if symptoms worsen or do not improve. Could consider further evaluation for gallbladder disease including a CCK stimulated HIDA scan. Activity will be as tolerated and she will be on a soft low residue diet. - Patient Instructions Diet: GI Soft/Low Residue/Low Fiber Activity: As Tolerated Other/Special Instructions: Please schedule follow-up appointment with primary care provider within 1 week. - Discharge Plan *PRESCRIPTION DRUG MONITORING PROGRAM REVIEWED*: Not Applicable *COPY OF PRESCRIPTION DRUG MONITORING REPORT IN PATIENT DIONY: Not Applicable Home Medications: Home Meds Albuterol [Ventolin HFA] 1 - 2 puff INH Q4H PRN 06/16/13 [History] Budesonide/Formoterol [Symbicort 160-4.5 MCG] 2 puff INH BID #0 06/16/13 [History] ClonazePAM [KlonoPIN] 1 mg PO BID PRN 06/16/13 [History] Albuterol [Proventil Neb Soln] 0.63 mg NEB Q2H PRN 07/16/13 [History] Omeprazole 40 mg PO DAILY 09/22/14 [History] Levothyroxine Sodium [Tirosint] 88 mcg PO DAILY 06/09/15 [History] Baclofen 10 mg PO DAILY 06/19/18 [History] Mupirocin [Centany] 1 applic TOP TID 03/24/19 [History] Triamcinolone Acetonide [Triamcinolone Acetonide 0.1% Crm] 1 applic TOP BID 03/24/19 [History] diphenhydrAMINE HCL [Banophen] 1 cap PO Q6H PRN 03/24/19 [History] Naproxen [Naprosyn] 500 mg PO Q8HR PRN 10 Days #30 tablet 06/27/19 [Rx] Venlafaxine HCl [Venlafaxine ER] 75 mg PO DAILY 06/18/20 [History] estradioL [Estradiol] 0.5 mg PO DAILY 06/18/20 [History] Referrals: Serene Ball PA [Advanced RN Practitioner] - - Discharge Summary/Plan Comment DC Time >30 min.: No - Patient Data Vitals - Most Recent: Last Vital Signs Temp 96.8 F L 06/18/20 12:45 Pulse 56 L 06/18/20 13:08 Resp 18 06/18/20 13:08 BP 145/88 H 06/18/20 13:08 Pulse Ox 98 06/18/20 13:08 Weight - Most Recent: 173 lb 15.997 oz I&O - Last 24 hours: Intake & Output 06/18/20 06/18/20 06/18/20 06:59 14:59 22:59 Output Total 200 650 Balance -200 -650 Lab Results - Last 24 hrs: Laboratory Results - last 24 hr 06/18/20 06/18/20 06/18/20 Range/Units 02:34 02:34 02:34 WBC 11.2 H (4.5-11.0) K/uL RBC 4.52 (3.30-5.50) M/uL Hgb 11.2 L (12.0-15.0) g/dL Hct 37.7 (36.0-48.0) % MCV 83 (80-98) fL MCH 25 L (27-31) pg MCHC 30 L (32-36) % Plt Count 335 (150-400) K/uL Neut % (Auto) 58 (36-66) % Lymph % (Auto) 30 (24-44) % [place] % (Auto) 10 H (2-6) % Eos % (Auto) 2 (2-4) % Baso % (Auto) 1 (0-1) % Sodium 143 (140-148) mmol/L Potassium 3.6 (3.6-5.2) mmol/L Chloride 107 (100-108) mmol/L Carbon Dioxide 24 (21-32) mmol/L Anion Gap 11.9 (5.0-14.0) mmol/L BUN 12 (7-18) mg/dL Creatinine 0.9 (0.6-1.0) mg/dL Est Cr Clr Drug Dosing 63.24 mL/min Estimated GFR (MDRD) > 60 (>60) Glucose 105 (74-106) mg/dL Calcium 8.4 L (8.5-10.1) mg/dL Total Bilirubin 0.1 L D (0.2-1.0) mg/dL AST 20 (15-37) U/L ALT 24 (12-78) U/L Alkaline Phosphatase 118 H (46-116) U/L C-Reactive Protein 0.01 (0.0-0.3) mg/dL Total Protein 7.0 (6.4-8.2) g/dL Albumin 3.3 L (3.4-5.0) g/dL Globulin 3.7 H (2.3-3.5) g/dL Albumin/Globulin Ratio 0.9 L (1.2-2.2) Amylase (25-115) U/L Lipase (73-393) U/L Urine Color (YELLOW) Urine Appearance (CLEAR) Urine pH (5.0-8.0) Ur Specific [place] (1.008-1.030) Urine Protein (NEGATIVE) mg/dL Urine Glucose (UA) (NEGATIVE) mg/dL Urine Ketones (NEGATIVE) mg/dL Urine Occult Blood (NEGATIVE) Urine Nitrite (NEGATIVE) Urine Bilirubin (NEGATIVE) Urine Urobilinogen (0.2-1.0) EU/dL Ur Leukocyte Esterase (NEGATIVE) Urine RBC (0-5) Urine WBC (0-5) Ur Epithelial Cells Amorphous Sediment Urine Bacteria Urine Mucus SARS-CoV-2 RNA (KENDRICK) (NEGATIVE) 06/18/20 06/18/20 06/18/20 Range/Units 02:55 02:58 04:15 WBC (4.5-11.0) K/uL RBC (3.30-5.50) M/uL Hgb (12.0-15.0) g/dL Hct (36.0-48.0) % MCV (80-98) fL MCH (27-31) pg MCHC (32-36) % Plt Count (150-400) K/uL Neut % (Auto) (36-66) % Lymph % (Auto) (24-44) % [place] % (Auto) (2-6) % Eos % (Auto) (2-4) % Baso % (Auto) (0-1) % Sodium (140-148) mmol/L Potassium (3.6-5.2) mmol/L Chloride (100-108) mmol/L Carbon Dioxide (21-32) mmol/L Anion Gap (5.0-14.0) mmol/L BUN (7-18) mg/dL Creatinine (0.6-1.0) mg/dL Est Cr Clr Drug Dosing mL/min Estimated GFR (MDRD) (>60) Glucose (74-106) mg/dL Calcium (8.5-10.1) mg/dL Total Bilirubin (0.2-1.0) mg/dL AST (15-37) U/L ALT (12-78) U/L Alkaline Phosphatase (46-116) U/L C-Reactive Protein (0.0-0.3) mg/dL Total Protein (6.4-8.2) g/dL Albumin (3.4-5.0) g/dL Globulin (2.3-3.5) g/dL Albumin/Globulin Ratio (1.2-2.2) Amylase 129 H D (25-115) U/L Lipase 596 H (73-393) U/L Urine Color Yellow (YELLOW) Urine Appearance Clear (CLEAR) Urine pH 6.0 (5.0-8.0) Ur Specific [place] >= 1.030 (1.008-1.030) Urine Protein Negative (NEGATIVE) mg/dL Urine Glucose (UA) Negative (NEGATIVE) mg/dL Urine Ketones Negative (NEGATIVE) mg/dL Urine Occult Blood Negative (NEGATIVE) Urine Nitrite Negative (NEGATIVE) Urine Bilirubin Negative (NEGATIVE) Urine Urobilinogen 0.2 (0.2-1.0) EU/dL Ur Leukocyte Esterase Negative (NEGATIVE) Urine RBC 0-5 (0-5) Urine WBC 0-5 (0-5) Ur Epithelial Cells Few Amorphous Sediment Not seen Urine Bacteria Few Urine Mucus Not seen SARS-CoV-2 RNA (KENDRICK) Negative (NEGATIVE) Med Orders - Current: Current Medications Acetaminophen (Tylenol) 650 mg PO Q4H PRN PRN Reason: Headache/Pain Last Admin: 06/18/20 13:55 Dose: 650 mg Documented by: Albuterol (Proventil Neb Soln) 0.63 mg NEB Q2H PRN PRN Reason: Wheezing Albuterol (Ventolin Hfa) 0 gm INH Q4H PRN PRN Reason: Shortness of Breath Hydromorphone HCl (Dilaudid) 0.5 mg IVPUSH Q2H PRN PRN Reason: Abdominal Pain Last Admin: 06/18/20 15:19 Dose: 0.5 mg Documented by: Sodium Chloride (Normal Saline) 1,000 mls @ 250 mls/hr IV ASDIRECTED [facility] Last Admin: 06/18/20 06:27 Dose: 250 mls/hr Documented by: Mometasone Furoate/Formoterol Fumar (Dulera 200-5 Mcg) 2 puff IH BIDRT [facility] Last Admin: 06/18/20 08:20 Dose: 2 puff Documented by: Ondansetron HCl (Zofran) 4 mg IV Q4H PRN PRN Reason: Nausea/Vomiting Pantoprazole Sodium (Protonix Iv) 40 mg IVPUSH Q24H [facility] Last Admin: 06/18/20 06:27 Dose: 40 mg Documented by: Discontinued Medications Famotidine (Pepcid) 20 mg IVPUSH ONETIME ONE Stop: 06/18/20 02:35 Last Admin: 06/18/20 02:55 Dose: 20 mg Documented by: Fentanyl (Sublimaze) Confirm Administered Dose 100 mcg .ROUTE .STK-MED ONE Stop: 06/18/20 11:30 Hydromorphone HCl (Dilaudid) 0.5 mg IVPUSH ONETIME ONE Stop: 06/18/20 03:37 Last Admin: 06/18/20 04:15 Dose: 0.5 mg Documented by: Sodium Chloride (Normal Saline) 1,000 mls @ 999 mls/hr IV ASDIRECTED [facility] Last Admin: 06/18/20 02:48 Dose: 999 mls/hr Documented by: Sodium Chloride (Normal Saline) 80 mls @ 3 mls/sec IV ASDIRECTED [facility] Last Admin: 06/18/20 03:42 Dose: 3 mls/sec Documented by: Sodium Chloride (Normal Saline) 1,000 mls [facility] Admin: 06/18/20 04:54 Dose: 999 mls/hr Documented by: Iopamidol (Isovue-300 (61%)) 110 ml IV ONETIME ONE Stop: 06/18/20 03:24 Last Admin: 06/18/20 03:42 Dose: 110 ml Documented by: Lorazepam (Ativan) 0.5 mg IVPUSH ONETIME ONE Stop: 06/18/20 02:52 Last Admin: 06/18/20 03:02 Dose: 0.5 mg Documented by: Midazolam HCl (Versed 1 Mg/Ml) Confirm Administered Dose 2 mg .ROUTE .STK-MED ONE Stop: 06/18/20 11:30 Ondansetron HCl (Zofran) 4 mg IVPUSH ONETIME ONE Stop: 06/18/20 02:34 Last Admin: 06/18/20 02:53 Dose: 4 mg Documented by: Propofol (Diprivan 20 Ml) Confirm Administered Dose 200 mg .ROUTE .STK-MED ONE Stop: 06/18/20 11:30 Sodium Chloride (Saline Flush) 10 ml FLUSH ONETIME ONE Stop: 06/18/20 03:24 Last Admin: 06/18/20 03:42 Dose: 10 ml Documented by: - Exam General: Reports: Alert, Oriented, Moderate Distress Lungs: Reports: Clear to Auscultation, Normal Respiratory Effort Cardiovascular: Reports: Regular Rate, Regular Rhythm, No Murmurs GI/Abdominal Exam: Soft, No Organomegaly, Tender. No: Distended, Guarding, Rigid, Rebound Extremities: Non-Tender, No Pedal Edema
== END 2020-06-18 16:08 | disposition home or self-care (01) | DRG 641 ==
LOC: JP.ED 01:58 → JP.ICU 05:42
PROVIDERS: ADMIT Family Medicine; ATTEND Hospitalist
PROC: 0D748ZZ Dilation of Esophagogastric Junction, Via Natural or Artificial Opening Endoscopic (ICD-10-PCS; principal; 2020-06-18)
DX: E86.0 Dehydration (principal); R53.1 Weakness; R74.8 Abnormal levels of other serum enzymes; R11.0 Nausea; J45.909 Unspecified asthma, uncomplicated; R10.13 Epigastric pain; R10.11 Right upper quadrant pain; F19.10 Other psychoactive substance abuse, uncomplicated; F41.9 Anxiety disorder, unspecified; E03.9 Hypothyroidism, unspecified; G89.29 Other chronic pain; M54.5 Low back pain; G56.01 Carpal tunnel syndrome, right upper limb; N93.8 Other specified abnormal uterine and vaginal bleeding; G43.909 Migraine, unspecified, not intractable, without status migrainosus; Z20.828 Contact with and (suspected) exposure to other viral communicable diseases; E27.9 Disorder of adrenal gland, unspecified; H54.7 Unspecified visual loss; E78.00 Pure hypercholesterolemia, unspecified; K21.9 Gastro-esophageal reflux disease without esophagitis; M54.2 Cervicalgia; M19.90 Unspecified osteoarthritis, unspecified site; E66.9 Obesity, unspecified; Z98.51 Tubal ligation status; F17.210 Nicotine dependence, cigarettes, uncomplicated; Z79.890 Hormone replacement therapy; Z79.899 Other long term (current) drug therapy; Z91.048 Other nonmedicinal substance allergy status; Z88.0 Allergy status to penicillin; Z88.6 Allergy status to analgesic agent; Z90.710 Acquired absence of both cervix and uterus; Z88.1 Allergy status to other antibiotic agents; Z88.8 Allergy status to other drugs, medicaments and biological substances; Z87.440 Personal history of urinary (tract) infections; Z68.30 Body mass index [BMI] 30.0-30.9, adult
CPT/HCPCS: 36415; 70450; 70450-26; 71045; 71045-26; 74177; 76700; 76700-26; 80053; 81001; 82150; 83690; 85025; 86140; 96361; 96374; 96375; 99235; 99284; 99285-25; A9270-GY; C9113; J1170; J2060; J2250; J2405; J2704; J3010; J3490; J7030; J7050; Q9967; U0002

== ENCOUNTER 2020-06-19 06:01 | Emergency (ER) | payer MEDICAID ==
[2020-06-19 06:28] VITALS: BP 116/69; PULSE 99
[2020-06-19] MEDS: Ondansetron 4 MG/2 ML SDV IVPUSH ONE (07:01)
[2020-06-19] MEDS: fentaNYL 100 MCG/2 ML SDV IVPUSH ONE (07:01)
--- NOTE | 2020-06-19 07:01 | EDM.PDOC ---
<OfficerVenu - Last Filed: 06/19/20 06:56> ED HPI GENERAL MEDICAL PROBLEM - General Chief Complaint: Abdominal Pain Stated Complaint: ABD PAIN Time Seen by Provider: 06/19/20 06:56 Source of Information: Reports: Patient, Family, RN Notes Reviewed History Limitations: Reports: No Limitations - History of Present Illness INITIAL COMMENTS - FREE TEXT/NARRATIVE: 50-year-old female presents emergency department a complaint of right back pain, she was recently admitted to the hospital 2 days prior for complaint of abdominal pain with back pain at that time CT scan was unremarkable except for a 1.9 mm nodule on the right adrenal gland otherwise gallbladder appeared to be within normal limits she CT scan also showed dilated stomach she does have a hi story of Ann fundoplication. She was admitted to the hospital for hydration and pain control she underwent EGD which was also unremarkable ultrasound right upper quadrant did not reveal any abnormality of the gallbladder. Review of hospitalist notes states hospitalist wanted to keep her for further evaluation pain control however she declined and preferred to go home therefore she was discharged yesterday. She returns to hospital today complaint of pain with nausea no vomiting no fevers at home she states she is not taking anything for pain control as she has been out of her naproxen. Abdominal Pain Score (Numeric/FACES): 8 - Related Data Allergies Allergy/AdvReac Type Severity Reaction Status Date / Time adhesive tape Allergy Cannot Verified 06/19/20 06:19 Remember clindamycin Allergy Cannot Verified 06/19/20 06:19 Remember aspirin AdvReac Unknown Stomach Verified 06/19/20 06:19 Upset doxycycline AdvReac Unknown Stomach Verified 06/19/20 06:19 Upset guaifenesin AdvReac Unknown Stomach Verified 06/19/20 06:19 [From Robitussin A-C] Upset Home Meds: Home Meds Albuterol [Ventolin HFA] 1 - 2 puff INH Q4H PRN 06/16/13 [History] Budesonide/Formoterol [Symbicort 160-4.5 MCG] 2 puff INH BID #0 06/16/13 [History] ClonazePAM [KlonoPIN] 1 mg PO BID PRN 06/16/13 [History] Omeprazole 40 mg PO DAILY 09/22/14 [History] Levothyroxine Sodium [Tirosint] 88 mcg PO DAILY 06/09/15 [History] Baclofen 10 mg PO DAILY 06/19/18 [History] Mupirocin [Centany] 1 applic TOP TID 03/24/19 [History] Triamcinolone Acetonide [Triamcinolone Acetonide 0.1% Crm] 1 applic TOP BID 03/24/19 [History] diphenhydrAMINE HCL [Banophen] 1 cap PO Q6H PRN 03/24/19 [History] Naproxen [Naprosyn] 500 mg PO Q8HR PRN 10 Days #30 tablet 06/27/19 [Rx] Venlafaxine HCl [Venlafaxine ER] 75 mg PO DAILY 06/18/20 [History] estradioL [Estradiol] 0.5 mg PO DAILY 06/18/20 [History] Albuterol Sulfate 2.5 mg INH Q2H PRN 06/19/20 [History] Past Medical History HEENT History: Reports: Allergic Rhinitis, Impaired Vision Cardiovascular History: Reports: High Cholesterol Respiratory History: Reports: Asthma, Bronchitis, Recurrent Gastrointestinal History: Reports: GERD Genitourinary History: Reports: UTI, Recurrent OYSTER C[employer]URIST History: Reports: Endometriosis, Musculoskeletal History: Reports: Back Pain, Chronic, Neck Pain, Chronic, Osteoarthritis, Other (See Below) Other Musculoskeletal History: torn rotator cuff left,02/06 repaired Neurological History: Reports: Headaches, Chronic, Neuropathy, Peripheral Psychiatric History: Reports: Anxiety, Panic Attack Endocrine/Metabolic History: Reports: Hypothyroidism, Obesity/BMI 30+ - Infectious Disease History Infectious Disease History: Reports: Chicken Pox - Past Surgical History GI Surgical History: Reports: EGD, Ann Fundoplication Female Surgical History: Reports: Hysterectomy, Tubal Ligation Endocrine Surgical History: Reports: None Dermatological Surgical History: Reports: None Social & Family History - Family History HEENT: Reports: Cataract, Glaucoma, Impaired Vision Cardiac: Reports: CAD, High Cholesterol, Hypertension Respiratory: Reports: Asthma, COPD, Pneumothorax, Sleep Apnea : Reports: Renal Calculus OBGYN: Reports: Endometriosis, Fibroids, Musculoskeletal: Reports: Arthritis, Back pain, Chronic, Neck Pain, Chronic Neurological: Reports: Alzheimers Disease, CVA, Dementia, Migraines, Neuropathy, Diabetic Psychiatric: Reports: Abuse, Victim of, Anxiety, Bipolar, Depression, Panic Attack, Psych Hospitalization(s) Endocrine/Metabolic: Reports: Diabetes, Gestational, Diabetes, Type I, Diabetes, type II, Obesity/MBI 30+ Dermatologic: Reports: Eczema, Psoriasis Oncologic: Reports: Brain, Breast, Lung - Tobacco Use Smoking Status *Q: Current Every Day Smoker Years of Tobacco use: 35 Packs/Tins Daily: 0.5 - Caffeine Use Caffeine Use: Reports: Soda, Tea - Living Situation & Occupation Living situation: Reports: ED ROS GENERAL - Review of Systems Review Of Systems: See Below Constitutional: Reports: No Symptoms HEENT: Reports: No Symptoms Respiratory: Reports: No Symptoms Cardiovascular: Reports: No Symptoms GI/Abdominal: Reports: Abdominal Pain, Nausea. Denies: Vomiting : Reports: No Symptoms Musculoskeletal: Reports: Back Pain ED EXAM,LOWER BACK PAIN/INJURY - Physical Exam Exam: See Below Exam Limited By: No Limitations General Appearance: Alert, WD/WN, No Apparent Distress Respiratory/Chest: No Respiratory Distress, Lungs Clear, Normal Breath Sounds, No Accessory Muscle Use, Chest Non-Tender Cardiovascular: Regular Rate, Rhythm, No Murmur GI/Abdominal: Soft, Non-Tender Back Exam: Normal Inspection, Full Range of Motion, CVA Tenderness (R), Paraspinal Tenderness. No: CVA Tenderness (L), Vertebral Tenderness Departure - Departure Disposition: Home, Self-Care 01 Clinical Impression: Elevated lipase, Right flank pain - Discharge Information Instructions: Flank Pain, Adult, [id number], Abdominal Pain, Adult Referrals: PCP,None [Primary Care Provider] - Forms: ED Department Discharge Additional Instructions: Clear liquid diet only until pain improves. Use [place] as needed for pain relief. Recheck with your provider before the weekend. Return as needed. Sepsis Event Note (ED) - Evaluation Sepsis Screening Result: No Definite Risk <Rashawn Gatica - Last Filed: 06/19/20 08:29> Course - Vital Signs Text/Narrative:: Was offered admission and declined. Case discussed with Dr. Avila @ [facility] Last Recorded V/S: Last Vital Signs Temp 36.4 C 06/19/20 06:28 Pulse 99 06/19/20 06:28 Resp 17 06/19/20 06:28 BP 116/69 06/19/20 06:28 Pulse Ox 98 06/19/20 06:28 - Orders/Labs/Meds Orders: Active Orders 24 hr Category Date Time Status Peripheral IV Care [RC] . DIRECTED Care 06/19/20 06:45 Active Sodium Chloride 0.9% [Normal Saline] 1,000 ml Med 06/19/20 06:44 Active IV .BOLUS Sodium Chloride 0.9% [Saline Flush] Med 06/19/20 06:44 Active 10 ml FLUSH ASDIRECTED PRN Peripheral IV Insertion Adult [OM.PC] Urgent Oth 06/19/20 06:44 Ordered Medication Orders Sodium Chloride (Normal Saline) 1,000 mls @ 500 mls/hr IV .BOLUS STA Stop: 06/19/20 08:43 Last Admin: 06/19/20 07:05 Dose: 500 mls/hr Documented by: AXEL Sodium Chloride (Saline Flush) 10 ml FLUSH ASDIRECTED PRN PRN Reason: Keep Vein Open Last Admin: 06/19/20 07:03 Dose: 10 ml Documented by: AXEL Labs: Laboratory Tests 06/19/20 06/19/20 06/19/20 Range/Units 07:02 07:02 07:02 WBC 5.6 (4.5-11.0) K/uL RBC 4.30 (3.30-5.50) M/uL Hgb 10.7 L (12.0-15.0) g/dL Hct 35.8 L (36.0-48.0) % MCV 83 (80-98) fL MCH 25 L (27-31) pg MCHC 30 L (32-36) % Plt Count 311 (150-400) K/uL Neut % (Auto) 46 (36-66) % Lymph % (Auto) 42 (24-44) % Centre % (Auto) 9 H (2-6) % Eos % (Auto) 3 (2-4) % Baso % (Auto) 1 (0-1) % Sodium 140 (140-148) mmol/L Potassium 3.6 (3.6-5.2) mmol/L Chloride 103 (100-108) mmol/L Carbon Dioxide 27 (21-32) mmol/L Anion Gap 9.8 (5.0-14.0) mmol/L BUN 10 (7-18) mg/dL Creatinine 0.8 (0.6-1.0) mg/dL Est Cr Clr Drug Dosing 71.12 mL/min Estimated GFR (MDRD) > 60 (>60) Glucose 83 (74-106) mg/dL Lactic Acid 1.5 (0.4-2.0) mmol/L Calcium 8.5 (8.5-10.1) mg/dL Total Bilirubin 0.1 L (0.2-1.0) mg/dL AST 24 (15-37) U/L ALT 32 (12-78) U/L Alkaline Phosphatase 106 (46-116) U/L Troponin I < 0.017 (0.000-0.056) ng/mL Total Protein 6.9 (6.4-8.2) g/dL Albumin 3.2 L (3.4-5.0) g/dL Globulin 3.7 H (2.3-3.5) g/dL Albumin/Globulin Ratio 0.9 L (1.2-2.2) Lipase 816 H (73-393) U/L Urine Color (YELLOW) Urine Appearance (CLEAR) Urine pH (5.0-8.0) Ur Specific [place] (1.008-1.030) Urine Protein (NEGATIVE) mg/dL Urine Glucose (UA) (NEGATIVE) mg/dL Urine Ketones (NEGATIVE) mg/dL Urine Occult Blood (NEGATIVE) Urine Nitrite (NEGATIVE) Urine Bilirubin (NEGATIVE) Urine Urobilinogen (0.2-1.0) EU/dL Ur Leukocyte Esterase (NEGATIVE) Urine RBC (0-5) Urine WBC (0-5) Ur Epithelial Cells Amorphous Sediment Urine Bacteria Urine Mucus 06/19/20 Range/Units 07:09 WBC (4.5-11.0) K/uL RBC (3.30-5.50) M/uL Hgb (12.0-15.0) g/dL Hct (36.0-48.0) % MCV (80-98) fL MCH (27-31) pg MCHC (32-36) % Plt Count (150-400) K/uL Neut % (Auto) (36-66) % Lymph % (Auto) (24-44) % Centre % (Auto) (2-6) % Eos % (Auto) (2-4) % Baso % (Auto) (0-1) % Sodium (140-148) mmol/L Potassium (3.6-5.2) mmol/L Chloride (100-108) mmol/L Carbon Dioxide (21-32) mmol/L Anion Gap (5.0-14.0) mmol/L BUN (7-18) mg/dL Creatinine (0.6-1.0) mg/dL Est Cr Clr Drug Dosing mL/min Estimated GFR (MDRD) (>60) Glucose (74-106) mg/dL Lactic Acid (0.4-2.0) mmol/L Calcium (8.5-10.1) mg/dL Total Bilirubin (0.2-1.0) mg/dL AST (15-37) U/L ALT (12-78) U/L Alkaline Phosphatase (46-116) U/L Troponin I (0.000-0.056) ng/mL Total Protein (6.4-8.2) g/dL Albumin (3.4-5.0) g/dL Globulin (2.3-3.5) g/dL Albumin/Globulin Ratio (1.2-2.2) Lipase (73-393) U/L Urine Color Yellow (YELLOW) Urine Appearance Clear (CLEAR) Urine pH 7.0 (5.0-8.0) Ur Specific [place] 1.025 (1.008-1.030) Urine Protein Negative (NEGATIVE) mg/dL Urine Glucose (UA) Negative (NEGATIVE) mg/dL Urine Ketones Negative (NEGATIVE) mg/dL Urine Occult Blood Negative (NEGATIVE) Urine Nitrite Negative (NEGATIVE) Urine Bilirubin Negative (NEGATIVE) Urine Urobilinogen 0.2 (0.2-1.0) EU/dL Ur Leukocyte Esterase Negative (NEGATIVE) Urine RBC Not seen (0-5) Urine WBC 5-10 H (0-5) Ur Epithelial Cells Rare Amorphous Sediment Not seen Urine Bacteria Moderate Urine Mucus Not seen Meds: Medications Generic Name Dose Route Start Last Admin Trade Name Freq PRN Reason Stop Dose Admin Sodium Chloride 1,000 mls @ 500 mls/hr 06/19/20 06:44 06/19/20 07:05 Normal Saline IV 06/19/20 08:43 500 mls/hr .BOLUS STA Administration Sodium Chloride 10 ml 06/19/20 06:44 06/19/20 07:03 Saline Flush FLUSH 10 ml ASDIRECTED PRN Administration Keep Vein Open Discontinued Medications Generic Name Dose Route Start Last Admin Trade Name Freq PRN Reason Stop Dose Admin Fentanyl 50 mcg 09/29/20 06:45 06/19/20 07:01 Sublimaze IVPUSH 06/19/20 06:46 50 mcg ONETIME ONE Administration Ketorolac Tromethamine 30 mg 06/19/20 07:45 06/19/20 08:00 Toradol IVPUSH 06/19/20 07:46 30 mg ONETIME ONE Administration Ondansetron HCl 4 mg 06/19/20 06:45 06/19/20 07:01 Zofran IVPUSH 06/19/20 06:46 4 mg ONETIME ONE Administration - Radiology Interpretation Free Text/Narrative:: CT abd/pelvis without contrast- CT Results Date: 06/19/20 Departure - Departure Time of Disposition: 08:30 Condition: Fair - Discharge Information *PRESCRIPTION DRUG MONITORING PROGRAM REVIEWED*: No *COPY OF PRESCRIPTION DRUG MONITORING REPORT IN PATIENT DIONY: No Sepsis Event Note (ED) - Focused Exam Vital Signs: Vital Signs Temp Pulse Resp BP Pulse Ox 06/19/20 06:28 36.4 C 99 17 116/69 98 06/19/20 06:27 36.4 C 99 17 116/69 98
[2020-06-19] MEDS: Sodium Chloride 0.9% 10 ML Syringe FLUSH PRN (07:03)
[2020-06-19] MEDS: Sodium Chloride 0.9% 1,000 ML IV STA (07:05)
[2020-06-19] MEDS: Ketorolac 30 MG/ML SDV IVPUSH ONE (08:00)
== END 2020-06-19 08:45 | disposition home or self-care (01) ==
LOC: JP.ED 06:01
DX: R10.9 Unspecified abdominal pain (principal); R74.8 Abnormal levels of other serum enzymes; J45.909 Unspecified asthma, uncomplicated; K21.9 Gastro-esophageal reflux disease without esophagitis; G62.9 Polyneuropathy, unspecified; F41.9 Anxiety disorder, unspecified; E03.9 Hypothyroidism, unspecified; E66.9 Obesity, unspecified; Z68.28 Body mass index [BMI] 28.0-28.9, adult; Z91.048 Other nonmedicinal substance allergy status; Z88.1 Allergy status to other antibiotic agents; Z88.6 Allergy status to analgesic agent; Z79.899 Other long term (current) drug therapy
CPT/HCPCS: 36415; 80053; 81001; 83605; 83690; 84484; 85025; 96361; 96374; 96375; 99284; J1885; J2405; J3010; J7030

== ENCOUNTER 2021-06-20 11:11 | Emergency (ER) | payer MEDICAID ==
[2021-06-20 12:00] VITALS: BP 134/86; PULSE 66
[2021-06-20] MEDS ORDERED: diphenhydrAMINE 50 MG/ML SDV IVPUSH ONE (12:30)
[2021-06-20] MEDS ORDERED: Ketorolac 30 MG/ML SDV IVPUSH ONE (12:30)
[2021-06-20] MEDS ORDERED: Prochlorperazine 10 MG/2 ML SDV IVPUSH ONE (12:30)
[2021-06-20] MEDS ORDERED: Lactated Ringers 1,000 ML IV ONE (12:30)
--- NOTE | 2021-06-20 12:36 | EDM.PDOC ---
ED HPI GENERAL MEDICAL PROBLEM - General Chief Complaint: Headache Stated Complaint: MIGRAINE,ANXIETY ATTACK, Time Seen by Provider: 06/20/21 12:20 Source of Information: Reports: Patient, Old Records History Limitations: Reports: No Limitations - History of Present Illness INITIAL COMMENTS - FREE TEXT/NARRATIVE: 51 yo female with a pHx of migraine awoke about 0200h last night with another. This is similar, but somewhat worse than normal. has photophobia, phonophobia and nausea. No fever. Pain in the back of her neck that is usual with her NAVA's. Onset: Today, Sudden Onset Date: 06/20/21 Onset Time: 02:00 Duration: Hour(s):, Constant Location: Reports: Head Quality: Reports: Ache Severity: Severe Improves with: Reports: None (took naprosyn about 0300h without relief. ) Worsens with: Reports: Other (unsure what brought it on) Context: Reports: Other (See HPI) Associated Symptoms: Reports: Headaches, Nausea/Vomiting (unable to vomit due to GI surgery ). Denies: Confusion, Fever/Chills Treatments PILOT SUBMERSIBLE: Reports: Other (see below) (none recently) Headache Pain Score (Numeric/FACES): 10 - Related Data Allergies Allergy/AdvReac Type Severity Reaction Status Date / Time adhesive tape Allergy Cannot Verified 06/20/21 12:00 Remember clindamycin Allergy Cannot Verified 06/20/21 12:00 Remember aspirin AdvReac Unknown Stomach Verified 06/20/21 12:00 Upset doxycycline AdvReac Unknown Stomach Verified 06/20/21 12:00 Upset guaifenesin AdvReac Unknown Stomach Verified 06/20/21 12:00 [From Eugeniosin A-C] Upset Home Meds: Home Meds Albuterol [Ventolin HFA] 1 - 2 puff INH Q4H PRN 06/16/13 [History] Budesonide/Formoterol [Symbicort 160-4.5 MCG] 2 puff INH BID #0 06/16/13 [History] ClonazePAM [KlonoPIN] 1 mg PO BID PRN 06/16/13 [History] Omeprazole 40 mg PO DAILY 09/22/14 [History] Levothyroxine Sodium [Tirosint] 137 mcg PO DAILY 06/09/15 [History] Mupirocin [Centany] 1 applic TOP TID 03/24/19 [History] Triamcinolone Acetonide [Triamcinolone Acetonide 0.1% Crm] 1 applic TOP BID 03/24/19 [History] diphenhydrAMINE HCL [Banophen] 1 cap PO Q6H PRN 03/24/19 [History] Naproxen [Naprosyn] 500 mg PO Q8HR PRN 10 Days #30 tablet 06/27/19 [Rx] Venlafaxine HCl [Venlafaxine ER] 75 mg PO DAILY 06/18/20 [History] estradioL [Estradiol] 0.5 mg PO DAILY 06/18/20 [History] Albuterol Sulfate 2.5 mg INH Q2H PRN 06/19/20 [History] methylPREDNISolone [Methylprednisolone] 4 mg PO DAILY 06/20/21 [History] Past Medical History HEENT History: Reports: Allergic Rhinitis, Impaired Vision Cardiovascular History: Reports: High Cholesterol Respiratory History: Reports: Asthma, Bronchitis, Recurrent Gastrointestinal History: Reports: GERD Genitourinary History: Reports: UTI, Recurrent 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: Reports: Endometriosis, Musculoskeletal History: Reports: Back Pain, Chronic, Neck Pain, Chronic, Osteoarthritis, Other (See Below) Other Musculoskeletal History: torn rotator cuff left,02/06 repaired Neurological History: Reports: Headaches, Chronic, Neuropathy, Peripheral Psychiatric History: Reports: Anxiety, Panic Attack Endocrine/Metabolic History: Reports: Hypothyroidism, Obesity/BMI 30+ - Infectious Disease History Infectious Disease History: Reports: Chicken Pox - Past Surgical History HEENT Surgical History: Reports: None Cardiovascular Surgical History: Reports: None Respiratory Surgical History: Reports: None GI Surgical History: Reports: EGD, Ann Fundoplication Female Surgical History: Reports: Hysterectomy, Tubal Ligation Endocrine Surgical History: Reports: None Neurological Surgical History: Reports: None Musculoskeletal Surgical History: Reports: Shoulder Surgery Dermatological Surgical History: Reports: None Social & Family History - Family History HEENT: Reports: Cataract, Glaucoma, Impaired Vision Cardiac: Reports: CAD, High Cholesterol, Hypertension Respiratory: Reports: Asthma, COPD, Pneumothorax, Sleep Apnea : Reports: Renal Calculus OBGYN: Reports: Endometriosis, Fibroids, Musculoskeletal: Reports: Arthritis, Back pain, Chronic, Neck Pain, Chronic Neurological: Reports: Alzheimers Disease, CVA, Dementia, Migraines, Neuropathy, Diabetic Psychiatric: Reports: Abuse, Victim of, Anxiety, Bipolar, Depression, Panic Attack, Psych Hospitalization(s) Endocrine/Metabolic: Reports: Diabetes, Gestational, Diabetes, Type I, Diabetes, type II, Obesity/MBI 30+ Dermatologic: Reports: Eczema, Psoriasis Oncologic: Reports: Brain, Breast, Lung - Tobacco Use Tobacco Use Status *Q: Heavy Tobacco User Years of Tobacco use: 20 Packs/Tins Daily: 1 - Caffeine Use Caffeine Use: Reports: Soda, Tea - Recreational Drug Use Recreational Drug Use: No - Living Situation & Occupation Living situation: Reports: ED ROS GENERAL - Review of Systems Review Of Systems: See Below Constitutional: Reports: No Symptoms HEENT: Reports: Other (photophobia) Respiratory: Reports: No Symptoms Cardiovascular: Reports: No Symptoms GI/Abdominal: Reports: Nausea. Denies: Diarrhea, Vomiting : Reports: No Symptoms Musculoskeletal: Reports: Neck Pain (posterior neck) Skin: Reports: No Symptoms Neurological: Reports: Headache Psychiatric: Reports: Anxiety - Physical Exam Exam: See Below Exam Limited By: No Limitations General Appearance: Alert, WD/WN, Mild Distress Eye Exam: Bilateral Eye: Normal Inspection Ears: Normal External Exam, Normal Canal, Hearing Grossly Normal Nose: Normal Inspection, No Blood Throat/Mouth: Normal Inspection, Normal Lips, Normal Oropharynx, Normal Voice, No Airway Compromise Head Exam: Atraumatic, Normocephalic Neck: Normal Inspection Respiratory/Chest: No Respiratory Distress, Lungs Clear, Normal Breath Sounds, No Accessory Muscle Use Cardiovascular: Regular Rate, Rhythm, No Edema GI/Abdominal: Soft, Non-Tender, No Distention. No: Distended Neuro Exam (Abbreviated): Alert, Oriented, CN II-XII Intact, Normal Cognition, No Motor/Sensory Deficits Back Exam: Normal Inspection. No: CVA Tenderness (R), CVA Tenderness (L) Extremities: Normal Inspection, Normal Range of Motion, Non-Tender Psychiatric: Normal Affect, Normal Mood Skin Exam: Warm, Dry, Intact, Normal Color, No Rash Course - Vital Signs Last Recorded V/S: Last Vital Signs Temp 36.0 C L 06/20/21 11:59 Pulse 66 06/20/21 11:59 Resp 20 06/20/21 11:59 BP 134/86 06/20/21 11:59 Pulse Ox 97 06/20/21 11:59 - Orders/Labs/Meds Meds: Medications Discontinued Medications Generic Name Dose Route Start Last Admin Trade Name Feli PRN Reason Stop Dose Admin Diphenhydramine HCl 25 mg 06/20/21 12:30 06/20/21 12:51 Diphenhydramine 50 Mg/Ml Sdv IVPUSH 06/20/21 12:31 25 mg ONETIME ONE Administration Lactated Ringer's 1,000 mls @ 1,000 mls/hr 06/20/21 12:30 06/20/21 12:49 Ringers, Lactated IV 06/20/21 13:29 1,000 mls/hr BOLUS ONE Administration Ketorolac Tromethamine 30 mg 06/20/21 12:30 06/20/21 12:50 Ketorolac 30 Mg/Ml Sdv IVPUSH 06/20/21 12:31 30 mg ONETIME ONE Administration Prochlorperazine Edisylate 10 mg 06/20/21 12:30 06/20/21 12:54 Prochlorperazine 10 Mg/2 Ml Sdv IVPUSH 06/20/21 12:31 10 mg ONETIME ONE Administration - Re-Assessments/Exams Free Text/Narrative Re-Assessment/Exam: 06/20/21 13:29 much better after tx. Departure - Departure Time of Disposition: 13:45 Disposition: Home, Self-Care 01 Condition: Good Clinical Impression: Migraine Qualifiers: Migraine type: without aura Status migrainosus presence: without status migrainosus Intractability: not intractable Qualified Code(s): G43.009 - Migraine without aura, not intractable, without status migrainosus - Discharge Information *PRESCRIPTION DRUG MONITORING PROGRAM REVIEWED*: Not Applicable *COPY OF PRESCRIPTION DRUG MONITORING REPORT IN PATIENT DIONY: Not Applicable Instructions: Migraine Headache, [id number] Referrals: Serene Ball PA [Primary Care Provider] - Forms: ED Department Discharge Additional Instructions: No driving today. Stay in communication with your provider. Recheck as needed. Recommend you go home and sleep right away. Sepsis Event Note (ED) - Evaluation Sepsis Screening Result: No Definite Risk - Focused Exam Vital Signs: Vital Signs Temp Pulse Resp BP Pulse Ox 06/20/21 11:59 36.0 C L 66 20 134/86 97 06/20/21 11:55 36.4 C 56 L 22 H 97
== END 2021-06-20 13:49 | disposition home or self-care (01) ==
LOC: JP.ED 11:11
DX: G43.009 Migraine without aura, not intractable, without status migrainosus (principal); E78.00 Pure hypercholesterolemia, unspecified; K21.9 Gastro-esophageal reflux disease without esophagitis; E03.9 Hypothyroidism, unspecified; E66.9 Obesity, unspecified; Z68.27 Body mass index [BMI] 27.0-27.9, adult; Z72.0 Tobacco use; Z79.899 Other long term (current) drug therapy; Z91.040 Latex allergy status; Z88.1 Allergy status to other antibiotic agents; Z88.8 Allergy status to other drugs, medicaments and biological substances
CPT/HCPCS: 96374; 96375; 99283; J0780; J1200; J1885; J7120

== ENCOUNTER 2021-10-20 14:16 | Emergency (ER) | payer MEDICAID ==
[2021-10-20 14:29] VITALS: BP 109/61
[2021-10-20] MEDS ORDERED: Acetaminophen 325 MG Tab PO ONE (14:51)
[2021-10-20] MEDS ORDERED: LORazepam 2 MG/ML SDV IVPUSH ONE (14:52)
[2021-10-20 15:33] LABS: CORONAVIRUS COVID-19 NAA POSITIVE (NEGATIVE)
[2021-10-20] MEDS ORDERED: Acetaminophen/HYDROcodone 325-5 MG Tab PO ONE (17:10)
[2021-10-20] MEDS ORDERED: Ketorolac 30 MG/ML SDV IVPUSH ONE (19:32)
[2021-10-20 19:44] VITALS: PULSE 92
== END 2021-10-20 22:08 | disposition home or self-care (01) ==
LOC: JP.ED 14:16
DX: U07.1 COVID-19 (principal); J45.909 Unspecified asthma, uncomplicated; K21.9 Gastro-esophageal reflux disease without esophagitis; E03.9 Hypothyroidism, unspecified; E66.9 Obesity, unspecified; Z68.33 Body mass index [BMI] 33.0-33.9, adult; Z72.0 Tobacco use; Z88.8 Allergy status to other drugs, medicaments and biological substances; Z91.048 Other nonmedicinal substance allergy status; Z88.1 Allergy status to other antibiotic agents; Z79.899 Other long term (current) drug therapy
CPT/HCPCS: 0241U; 36415; 71045; 80053; 81001; 83605; 83615; 84145; 85025; 85379; 86140; 96374; 96375; 99284; A9270; J1885; J2060

== ENCOUNTER 2021-10-21 06:22 | Inpatient (IN) | payer MEDICAID ==
[2021-10-21] MEDS ORDERED: Ibuprofen 600 MG Tab PO ONE (07:47)
[2021-10-21] MEDS ORDERED: REMDESIVIR 200 MG in Sodium Chloride 0.9% 250 ML IV ONE ×2 (10:04→11:00)
[2021-10-21] MEDS ORDERED: Dexamethasone 4 MG/ML SDV IVPUSH ONE (10:04)
[2021-10-21] MEDS ORDERED: Sodium Chloride 0.9% 1,000 ML IV SCH (11:30)
[2021-10-21] MEDS ORDERED: Ondansetron 4 MG/2 ML SDV IV PRN (12:23)
[2021-10-21] MEDS ORDERED: Albuterol 8 GM Inhaler INH PRN (12:23)
[2021-10-21] MEDS ORDERED: Sodium Chloride 0.9% 10 ML Syringe FLUSH PRN (12:23)
[2021-10-21] MEDS ORDERED: Nicotine Polacrilex 2 MG Gum CHEW PRN (12:38)
[2021-10-21] MEDS: Enoxaparin 40 MG/0.4 ML Syringe SUBCUT SCH (14:32)
[2021-10-21] MEDS: Nicotine 14 MG/24 Hr Patch TRDERM SCH (14:32)
[2021-10-21] MEDS: Methocarbamol 500 MG Tab PO SCH ×2 (14:33→20:47)
[2021-10-21] MEDS: Acetaminophen 325 MG Tab PO PRN ×2 (16:19→22:30)
[2021-10-21] MEDS: ClonazePAM 1 MG Tab PO PRN (19:03)
[2021-10-21] MEDS: Formoterol/Mometasone 200-5 MCG 8.8 GM Inhaler IH SCH (20:48)
[2021-10-22] MEDS: Methocarbamol 500 MG Tab PO SCH ×4 (04:42→21:46)
[2021-10-22] MEDS: Acetaminophen 325 MG Tab PO PRN ×3 (04:42→19:27)
[2021-10-22] MEDS: Levothyroxine 25 MCG Tab PO SCH (07:19)
[2021-10-22] MEDS: Levothyroxine 112 MCG Tab PO SCH (07:20)
[2021-10-22] MEDS: Formoterol/Mometasone 200-5 MCG 8.8 GM Inhaler IH SCH ×2 (07:47→21:47)
[2021-10-22] MEDS: Nicotine 14 MG/24 Hr Patch TRDERM SCH (08:48)
[2021-10-22] MEDS: Estradiol 0.5 MG Tab PO SCH (08:48)
[2021-10-22] MEDS: Venlafaxine 75 MG Cap.ER PO SCH (08:48)
[2021-10-22] MEDS ORDERED: LEVOTHYROXINE SODIUM 25 MCG PO SCH (09:00)
[2021-10-22] MEDS: REMDESIVIR 100 MG in Sodium Chloride 0.9% 100 ML IV SCH (11:54)
[2021-10-22] MEDS: Dexamethasone 4 MG/ML SDV IVPUSH SCH (11:54)
[2021-10-22] MEDS: diphenhydrAMINE 25 MG Cap PO SCH ×2 (13:40→21:46)
[2021-10-22] MEDS: Enoxaparin 40 MG/0.4 ML Syringe SUBCUT SCH (13:40)
[2021-10-22] MEDS: ClonazePAM 1 MG Tab PO PRN (19:27)
[2021-10-23] MEDS: Formoterol/Mometasone 200-5 MCG 8.8 GM Inhaler IH SCH ×2 (07:24→20:41)
[2021-10-23] MEDS: Levothyroxine 112 MCG Tab PO SCH (07:37)
[2021-10-23] MEDS: Levothyroxine 25 MCG Tab PO SCH (07:37)
[2021-10-23] MEDS: Estradiol 0.5 MG Tab PO SCH (09:41)
[2021-10-23] MEDS: Venlafaxine 75 MG Cap.ER PO SCH (09:41)
[2021-10-23] MEDS: diphenhydrAMINE 25 MG Cap PO SCH ×2 (09:41→20:41)
[2021-10-23] MEDS: Methocarbamol 500 MG Tab PO SCH ×3 (09:41→20:41)
[2021-10-23] MEDS: Nicotine 14 MG/24 Hr Patch TRDERM SCH (09:42)
[2021-10-23] MEDS: ClonazePAM 1 MG Tab PO PRN ×2 (09:51→19:43)
[2021-10-23] MEDS: REMDESIVIR 100 MG in Sodium Chloride 0.9% 100 ML IV SCH (12:44)
[2021-10-23] MEDS: Dexamethasone 4 MG/ML SDV IVPUSH SCH (12:45)
[2021-10-23] MEDS: Enoxaparin 40 MG/0.4 ML Syringe SUBCUT SCH (12:46)
[2021-10-23] MEDS: Acetaminophen 325 MG Tab PO PRN ×2 (12:57→23:50)
[2021-10-23] MEDS: Clotrimazole 10 MG Troche PO SCH ×3 (14:25→22:05)
[2021-10-24] MEDS: Formoterol/Mometasone 200-5 MCG 8.8 GM Inhaler IH SCH (07:19)
[2021-10-24] MEDS: Levothyroxine 25 MCG Tab PO SCH (07:20)
[2021-10-24] MEDS: Levothyroxine 112 MCG Tab PO SCH (07:20)
[2021-10-24 07:23] VITALS: BP 110/69; PULSE 80
[2021-10-24] MEDS: Methocarbamol 500 MG Tab PO SCH (09:44)
[2021-10-24] MEDS: Estradiol 0.5 MG Tab PO SCH (09:44)
[2021-10-24] MEDS: diphenhydrAMINE 25 MG Cap PO SCH (09:45)
[2021-10-24] MEDS: Venlafaxine 75 MG Cap.ER PO SCH (09:45)
[2021-10-24] MEDS: Nicotine 14 MG/24 Hr Patch TRDERM SCH (10:10)
[2021-10-24] MEDS: Acetaminophen 325 MG Tab PO PRN (10:10)
[2021-10-24] MEDS: ClonazePAM 1 MG Tab PO PRN (10:10)
[2021-10-24] MEDS: Clotrimazole 10 MG Troche PO SCH ×2 (10:10→11:27)
== END 2021-10-24 11:44 | disposition home or self-care (01) | DRG 178 ==
LOC: JP.ED 06:22 → JP.2SS 11:10
PROVIDERS: ADMIT Hospitalist; ATTEND Hospitalist
PROC: 8E0ZXY6 Isolation (ICD-10-PCS; principal; 2021-10-21)
PROC: XW033E5 Introduction of Remdesivir Anti-infective into Peripheral Vein, Percutaneous Approach, New Technology Group 5 (ICD-10-PCS; 2021-10-21)
PROC: 3E0333Z Introduction of Anti-inflammatory into Peripheral Vein, Percutaneous Approach (ICD-10-PCS; 2021-10-21)
DX: U07.1 COVID-19 (principal); J45.901 Unspecified asthma with (acute) exacerbation; E78.5 Hyperlipidemia, unspecified; E03.9 Hypothyroidism, unspecified; F41.9 Anxiety disorder, unspecified; E66.9 Obesity, unspecified; K21.9 Gastro-esophageal reflux disease without esophagitis; E86.0 Dehydration; Z79.890 Hormone replacement therapy; Z79.899 Other long term (current) drug therapy; Z79.52 Long term (current) use of systemic steroids; Z87.440 Personal history of urinary (tract) infections; Z68.33 Body mass index [BMI] 33.0-33.9, adult; Z98.890 Other specified postprocedural states; Z90.710 Acquired absence of both cervix and uterus; Z98.51 Tubal ligation status
CPT/HCPCS: 36415; 80053; 85025; 85379; 86140; 94640; 96365; 96375; 99285-25; A9270-GY; J0248; J1100; J1650; J7030; J7050

== ENCOUNTER 2022-12-05 06:46 | Day surgery (SDC) | payer MEDICAID ==
[2022-12-05] MEDS ORDERED: Lidocaine 1% with EPINEPHrine 1:100,000 50 ML MDV ONE (06:50)
[2022-12-05] MEDS ORDERED: Bupivacaine 0.5% 50 ML MDV ONE (06:50)
[2022-12-05 07:13] VITALS: BP 119/62; PULSE 96
[2022-12-05] MEDS ORDERED: fentaNYL 100 MCG/2 ML SDV ONE (07:27)
[2022-12-05] MEDS ORDERED: Propofol 200 MG/20 ML SDV ONE (07:27)
[2022-12-05] MEDS ORDERED: Midazolam 1 MG/ML 2 ML SDV ONE (07:27)
[2022-12-05] MEDS ORDERED: Sodium Chloride 0.9% 1,000 ML IV SCH (07:45)
[2022-12-05] MEDS ORDERED: ceFAZolin 2 GM in Sodium Chloride 0.9% 50 ML IV ONE ×2 (08:00)
== END 2022-12-05 08:29 | disposition home or self-care (01) ==
LOC: JP.SDS 06:46
PROVIDERS: ATTEND Surgery
DX: D17.9 Benign lipomatous neoplasm, unspecified (principal); Z53.8 Procedure and treatment not carried out for other reasons
CPT/HCPCS: J2250; J2704; J3010; J3490

== ENCOUNTER 2023-01-23 07:05 | Day surgery (SDC) | payer MEDICAID ==
[2023-01-23] MEDS ORDERED: Propofol 200 MG/20 ML SDV ONE ×2 (07:21→08:56)
[2023-01-23] MEDS ORDERED: fentaNYL 50 MCG/ML SDV ONE (07:21)
[2023-01-23] MEDS ORDERED: Midazolam 1 MG/ML 2 ML SDV ONE (07:21)
[2023-01-23] MEDS ORDERED: Sodium Chloride 0.9% 1,000 ML IV SCH (08:00)
[2023-01-23 10:05] VITALS: BP 131/75; PULSE 82
== END 2023-01-23 10:10 | disposition home or self-care (01) ==
LOC: JP.SDS 07:05
PROVIDERS: ATTEND Surgery
DX: Z12.11 Encounter for screening for malignant neoplasm of colon (principal); K62.1 Rectal polyp; K21.9 Gastro-esophageal reflux disease without esophagitis; E03.9 Hypothyroidism, unspecified; F15.10 Other stimulant abuse, uncomplicated
CPT/HCPCS: 45378; J2250; J2704; J3010; J7030